=== PATIENT | male | born 1965 | race Caucasian/White ===

== ENCOUNTER 2024-04-07 07:52 | Outpatient (OUT) | payer OTHER, SELFPAY ==
--- NOTE | 2024-04-07 08:10 | CA_ITS ---
Patient Name: ALEXIS NGUYEN MR#: [id number] : 1965 Exam Date: 04/07/2024 Ordering Doctor: DR Neil Schaffer M.D. ECHOCARDIOGRAM REPORT PROCEDURE: CA ECHO DOPPLER COMPLETE INDICATIONS: Abnormal ECG, former smoker COMPARISON: None. DESCRIPTION: COMPLETE ECHOCARDIOGRAM Real-time transthoracic echocardiography with 2D, M-mode, spectral and color flow Doppler performed. QUALITY: Technical quality was good. LEFT VENTRICLE: Normal chamber size. Moderate left ventricular hypertrophy. No evidence of significant gradient across the left ventricular outflow tract. LV EF: Global left ventricular systolic function is hyperdynamic; visually estimated ejection fraction is 70 to 75%. No significant wall motion abnormalities. DIASTOLIC: Grade II diastolic dysfunction. ATRIAL SEPTUM: Visually appears intact. LEFT ATRIUM: Normal chamber size. RIGHT ATRIUM: Moderate dilatation. RIGHT VENTRICLE: Moderate dilatation. Normal right ventricular systolic function. TRICUSPID VALVE: Normal mobility and thickness. No stenosis with trivial regurgitation. Doppler studies reveal moderately (45-60) elevated right sided pressures. RVSP 58 mmHg MITRAL VALVE: Normal mobility and thickness. No evidence of mitral valve stenosis. There is no mitral annular calcification. Trivial mitral regurgitation. AORTIC VALVE: Normal trileaflet appearance. No visible sclerosis. Normal leaflet mobility. No evidence of aortic valve stenosis. No aortic regurgitation. AORTIC ROOT: Normal diameter and appearance. PULMONIC VALVE: Normal thickness and mobility. No stenosis. No regurgitation. PERICARDIUM: No evidence of pericardial effusion. IVC: IVC does not collapse. CONCLUSION: 1. Global left ventricular systolic function is hyperdynamic; visually estimated ejection fraction is 70 to 75% 2. The right ventricle is moderately dilated with normal systolic function 3. Grade 2 diastolic dysfunction 4. Moderate left ventricular hypertrophy 5. The right atrium is moderately dilated 6. Moderately elevated right ventricular systolic pressure; RVSP 58 mmHg 7. No significant valvular abnormalities Adult Echocardiography Procedure Report Left Ventricle LVEDD (3.7 - 5.6 cm): 4.53 cm LVESD (2.2 - 4.0 cm): 2.36 cm LVIVS thickness (0.6 - 1.2 cm): 2.15 cm LVPW thickness (0.5 - 1.0 cm): 1.34 cm e': 0.05 m/s E - e': 12.27 LVOT Max Gradient: 7.41 mm[Hg] LVOT Area (cm2): 1.36 m/s Peak Velocity (LVOT): 1.36 m/s Mean Velocity (LVOT): 0.90 m/s LVOT Diameter 2.51 cm Left Atrium LA Volume Index (2D A2C): 28.44 ml/m2 Left Atrium Systolic Dimension: 3.75 cm Mitral Valve MV E to A Ratio: 0.82 Mitral Valve A-Wave Peak Velocity: 0.80 m/s Mitral Valve E-Wave Peak Velocity: 0.66 m/s Right Ventricle Aorta AO Root Diam: 3.61 cm Aortic Valve AoV Area (Peak Mikey): 4.97 cm2, 4.97 cm2 AoV Area (VTI): 5.06 cm2, 5.06 cm2 Peak Velocity(Antegrade Flow): 1.36 m/s Peak Gradient(Antegrade Flow): 7.36 mm[Hg] Mean Velocity(Antegrade Flow): 0.92 m/s Mean Gradient(Antegrade Flow): 3.93 mm[Hg] Velocity Time Integral: 29.56 cm Tricuspid Valve Peak Velocity (Regurgitant Flow): 3.52 m/s Pulmonic Valve Mean Gradient: 1.67 mm[Hg] Mean Velocity: 0.60 m/s Peak Velocity: 0.90 m/s, 0.84 m/s Peak Gradient: 2.80 mm[Hg], 3.25 mm[Hg] Right Atrium Right Atrium Systolic Pressure: 68.73 ml, 68.73 ml Dictated by: Neil Schaffer M.D. on 04/08/2024 at 08:23 Approved by: Neil Schaffer M.D. on 04/08/2024 at 08:34
== END 2024-04-07 07:53 | disposition home or self-care (01) ==
LOC: CARD 07:55
PROVIDERS: PCP Internal Medicine; Visit Provider Internal Medicine Interventional Cardiology
DX: R94.31 Abnormal electrocardiogram [ECG] [EKG] (principal)
CPT/HCPCS: 93306

== ENCOUNTER 2024-06-03 10:32 | Outpatient (OUT) | payer OTHER, SELFPAY ==
--- OUTSIDE RECORDS SUMMARY | 2024-06-03 10:45 | XMS_ITS | CCD ---
Author Organization [facility] Care Team Providers Care 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 Name Role Phone CHRISTIAN SUTTON Consulting Unavailable BRY PAYAN Attending Unavailable BRY PAYAN Admitting Unavailable DEVRIES, DANIELE Primary Care Unavailable Brown Daniele FRAUSTO A Primary Care Provider [phone] BROWN, DANIELE A Primary Care Unavailable CORWIN SOSA Attending Unavailabl e SHEILA, CORWIN Guevara Attending Unavailabl e CORWIN SOSA Referring Unavailabl e BROWN, DANIELE A Primary Care Unavailable BROWN, DANIELE A Referring Unavailable BROWN, DANIELE A Primary Care Unavailable JAMINJUSTIN WHITLEY Admitting Unavailable JAMINJUSTIN WHITLEY Attending Unavailable JUSTIN NEVILLE Referring Unavailable BROWN, DANIELE A Primary Care Unavailable OLAMIDE TOMLINSON Attending Unavailable BROWN, DANIELE A Primary Care Unavailable BROWN, DANIELE A Referring Unavailable BROWN, DANIELE A Primary Care Unavailable PAULINA OLSON Referring Unavailable BROWN, DANIELE A Primary Care Unavailable DEVRIES, DANIELE B Referring Unavailable BROWN, DANIELE A Primary Care Unavailable DEVRIES, DANIELE B Referring Unavailable BROWN, DANIELE A Primary Care Unavailable DEVRIES, DANIELE B Referring Unavailable BROWN, DANIELE A Primary Care Unavailable DEVRIES, DANIELE B Referring Unavailable BROWN, DANIELE A Primary Care Unavailable JAMIN, JUSTIN Watkins Admitting Unavailable JAMINJUSTIN Attending Unavailable JUSTIN NEVILLE Referring Unavailable BROWN, DANIELE A Primary Care Unavailable LIZANDRO DURHAM Attending Unavailable BROWN, DANIELE A Primary Care Unavailable DEVRIES, DANIELE Primary Care Unavailable Jamin, Justin Penaloza Admitting Unavail able Jamin, Justin Penaloza Attending Unavail able Paulina Li Unavailable DEVRIES, DANIELE Primary Care Unavailable Jamin, Justin Penaloza Admitting Unavail able Jamin, Justin Penaloza Attending Unavail able DEVRIES, DANIELE Primary Care Unavailable Jamin, Justin Penaloza Admitting Unavail able Jamin, Justin Penaloza Attending Unavail able Daniele Devries MD Primary Care Provider [phone] DANIELE DEVRIES Primary Care Physician JUSTIN NEVILLE Attending Unavailable GERALDINE CASTANEDA Attending Unavailable HEMGERALDINE HUTCHINSON Referring Unavailable APLING, CHAPITO Schaefer Attending Unavailable TODD VALDEZ Attending Unavailable HEMEVANGELINA, GERALDINE Bernard Attending Unavailable APLING, CHAPITO Schaefer Attending Unavailable JAMIN, JUSTIN Watkins Attending Unavailable JAMIN, JUSTIN Watkins Referring Unavailable JAMIN, JUSTIN Watkins Attending Unavailable RUS, DAMARIS Healy Attending Unavailable APLING, CHAPITO Schaefer Attending Unavailable JAMIN, JUSTIN Watkins Attending Unavailable DAYDAY, DANIELE Schaefer Attending Unavailable DANIELE DEVRIES Referring Unavailable JAMIN, JUSTIN Watkins Attending Unavailable DAYDAY, DANIELE Schaefer Attending Unavailable JAMIN, JUSTIN Watkins Attending Unavailable RUSHER, DAMARIS Healy Attending Unavailable JAMIN, JUSTIN Watkins Referring Unavailable JAMIN, JUSTIN Watkins Attending Unavailable RUS, DAMARIS Healy Attending Unavailable DANIELE DEVRIES Referring Unavailable JAMIN, JUSTIN Watkins Attending Unavailable DANIELE DEVRIES Attending Unavailable JAMIN, JUSTIN Watkins Attending Unavailable IVORY WILKERSON Attending Unavailable BROWN, DUANE A Referring Unavailable BROWN, DUANE Roland Attending Unavailable BROWN, DUANE A Referring Unavailable BROWN, DUANE Roland Attending Unavailable NADIA DUANE A Referring Unavailable GERALDINE CASTANEDA Attending Unavailable Brown, Duane A Referring Unavailable Brown, Duane A Attending Unavailable Brown, Duane A Admitting Unavailable Brown, Duane A Admitting Unavailable Brown, Duane A Attending Unavailable Brown, Duane A Referring Unavailable ELTAHAWY, EHAB Attending Unavailable ELTAHAWY, EHAB Attending Unavailable [place]HAWY, EHAB Admitting Unavailable [place]HAWY, EHAB Attending Unavailable EL[place]HAWY, EHAB Referring Unavailable Allergies Allergy Classification Reported Allergen(s) Allergy Type Date of Onset Reaction(s) Facility (3 sources) Penicillins; Translations: [PENICILLINS] Drug allergy (disorder) 4 [facility] Repository (1 source) Penicillins Propensity to adverse reactions to drug 7 [facility] (2 sources) Penicillin; Translations: [penicillin] Drug Allergy [facility] Repository (6 sources) Penicillins Drug Allergy 3 Rash [facility] Work Phone: Medications Current Medications Medication Drug Class(es) Dates Sig (Normalized) Sig (Original) aspirin 81 mg chewable tablet (6 sources) Platelet Aggregation Inhibitor, Nonsteroidal Anti-inflammatory Drug Start: 04-08-2024 End: 07-16-2024 aspirin 81 MG chewable tablet Chew 81 mg in the morning. 04/08/2024 07/16/2024 Active atorvastatin 40 mg oral tablet (4 sources) HMG-CoA Reductase Inhibitor Start: 04-08-2024 End: 07-16-2024 take 1 tablet by mouth at bedtime atorvastatin (Lipitor) 40 MG tablet Take 40 mg by mouth at bedtime 04/08/2024 07/16/2024 Active cetirizine hydrochloride 10 mg oral tablet (6 sources) Histamine-1 Receptor Antagonist take 1 tablet by mouth once daily cetirizine (ZyrTEC) 10 MG tablet Take 10 mg by mouth Daily Active ferrous sulfate 325 mg delayed release oral tablet (3 sources) Start: 02-21-2024 take 1 tablet by mouth at mealtime ferrous sulfate 325 (65 Fe) MG EC tablet Take 65 mg of iron by mouth in the morning. Take with meals. 02/21/2024 Active gabapentin 300 mg oral capsule (8 sources) Anti-epileptic Agent Start: 12-25-2023 take 1 capsule by mouth in the morning, then take 1 capsule by mouth in the evening, then take 1 capsule by mouth at bedtime gabapentin (Neurontin) 300 MG capsule Indications: Difficulty walking Take 1 capsule (300 mg) by mouth in the morning and 1 capsule (300 mg) in the evening and 1 capsule (300 mg) before bedtime. 300 capsule 1 12/25/2023 Active gabapentin (NEUR ONTIN) 300 mg capsule 1 capsule (300 mg total) 2 (two) times a day as needed. 0 Active hydroCHLOROthiazide 12.5 mg / irbesartan 150 mg oral tablet (7 sources) Thiazide Diuretic, Angiotensin 2 Receptor Stanley Start: 01-23-2024 End: 01-22-2025 take 1 tablet by mouth once daily irbesartan-hydroCHLOROthiazide (Avalide) 150-12.5 MG tablet Indications: Primary hypertension (CMS/HCC) Take 1 tablet by mouth Daily 90 tablet 3 01/23/2024 01/22/2025 Active ibuprofen 800 mg oral tablet (8 sources) Nonsteroidal Anti-inflammat ory Drug Start: 12-24-2023 take 1 tablet by mouth in the morning, then take 1 tablet by mouth in the evening, then take 1 tablet by mouth at bedtime ibuprofen 800 MG tablet Indications: Primary osteoarthritis of foot, unspecified laterality Take 1 tablet (800 mg) by mouth in the morning and 1 tablet (800 mg) in the evening and 1 tablet (800 mg) before bedtime. 90 tablet 2 12/24/2023 Active Start: 07-09-2023 take 1 tablet by ellyn every eight hours as needed ibuprofen (MOTRIN) 800 mg tablet Take 1 tablet (800 mg total) by mouth every 8 (eight) hours as needed. 0 07/09/2023 Active omeprazole 40 mg delayed release oral capsule (8 sources) Proton Pump Inhibitor Start: 03-17-2024 take 1 capsule by mouth once omeprazole (PriLOSEC) [address] capsule Indications: Gastroesophageal reflux disease without esophagitis Take 1 capsule (40 mg) by mouth every 12 (twelve) hours 180 capsule 3 03/17/2024 Active Start: 11-02-2016 take 1 capsule by mo [facility] in the morning, then take 1 capsule by mouth at bedtime omeprazole (PriLOSEC) 40 mg capsule Take 1 capsule (40 mg total) by mouth in the morning and 1 capsule (40 mg total) before bedtime. 3 11/02/2016 Active simvastatin 40 mg oral tablet (7 sources) HMG-CoA Reductase Inhibitor Start: 11-28-2016 take 1 tablet by mouth at bedtime simvastatin (Zocor) 40 MG tablet Indications: Other hyperlipidemia (CMS/HCC) Take 1 tablet (40 mg) by mouth at bedtime 90 tablet 3 07/10/2023 Active Completed/Discontinued Medications Medication Drug Class(es) Dates Sig (Normalized) Sig (Original) acetaminophen 325 mg oral tablet (1 source) End: 07-23-2023 take 2 tablets by mouth every six hours as needed for pain acetaminophen (TYLENOL) 325 mg tablet Take 650 mg by mouth every 6 (six) hours as needed for pain. 0 07/23/2023 Discontinued MULTIVIT-MINERALS/FE RROUS FUM (MULTI VITAMIN ORAL) (1 source) End: 07-23-2023 MULTIVIT-MINERALS/F ERROUS FUM (MULTI VITAMIN ORAL) Take by mouth daily. 0 07/23/2023 Discontinued potassium chloride 20 meq oral tablet (7 sources) Start: 05-21-2024 take 1 tablet by mouth once daily Potassium Chloride (Eqv-K-Tab) 20 mEq oral tablet, extended release 20 mEq = 1 tab(s), Oral, Daily, Prophylaxis Start Date: 05/21/24 Status: Ordered Start: 02-27-2024 take 1 tablet by ellyn th once daily potassium chloride CR (K-Tab) 20 MEQ ER tablet Indications: Hypokalemia Take 1 tablet (20 mEq) by mouth Daily Do not crush, chew, or split. 30 tablet 2 02/27/2024 Active Problems Active Problems Problem Classification Problem Date Documented Date Episodic/Chronic Coronary atherosclerosis and other heart disease (2 sources) Atherosclerotic heart disease of [place] coronary artery without angina pectoris; Translations: [Atherosclerotic heart disease of [place] coronary artery without angina pectoris] Onset: 4 Chronic Disorders of lipid metabolism (12 sources) Hyperlipidemia; Translations: [Hyperlipidemia, unspecified] Onset: 7 12-26-2016 Chronic Diverticulosis and diverticulitis (6 sources) Diverticula of intestine; Translations: [Diverticulosis of intestine, part unspecified, without perforation or abscess without bleeding] Onset: 3 12-06-2022 Chronic Esophageal disorders (9 sources) Gastro-esophageal reflux disease without esophagitis; Translations: [Gastroesophageal reflux disease] Onset: 7 12-26-2016 Chronic Essential hypertension (3 sources) Hypertensive disorder; Translations: [Essential (primary) hypertension] Onset: 4 05-21-2024 Chronic External cause codes: Fall (1 source) Fall (on) (from) unspecified stairs and steps, initial encounter; Translations: [FALL ON FROM UNS STAIRS STEPS INIT] Onset: 0 Gastritis and duodenitis (7 sources) Chronic superficial gastritis; Translations: [Chronic superficial gastritis without bleeding] Onset: 7 01-11-2017 Chronic Immunizations and screening for infectious disease (1 source) Encounter for immunization; Translations: [ENCOUNTER FOR IMMUNIZATION] Onset: 0 Episodic Joint disorders and dislocations; trauma-related (1 source) Unspecified internal derangement of right knee; Translations: [Unspecified internal derangement of right knee] Onset: 4 Chronic Open wounds of extremities (4 sources) Laceration without foreign body of right forearm, initial encounter; Translations: [LACERATION W/O FB RT FORARM INITIAL] Onset: 0 Episodic Osteoarthritis (19 sources) Osteoarthritis; Translations: [Unspecified osteoarthritis, unspecified site] Onset: 7 12-26-2016 Chronic Other aftercare (1 source) Other half-way (current) drug therapy; Translations: [OTH SUBSTANCE ABUSE THERAPIST CURRENT DRUG THERAPY] Onset: 0 Episodic Other connective tissue disease (10 sources) Rotator cuff arthropathy of right shoulder; Translations: [Unspecified rotator cuff tear or rupture of right shoulder, not specified as traumatic] Onset: 4 03-02-2024 Episodic Other diseases of veins and lymphatics (6 sources) Bilateral lower limb edema; Translations: [Chronic venous hypertension (idiopathic) without complications of bilateral lower extremity] Onset: 3 12-06-2022 Chronic Other injuries and conditions due to external causes (1 source) Other specified injuries of head, initial encounter; Translations: [OTH SPEC INJURIES HEAD INITIAL ENC] Onset: 0 Other liver diseases (6 sources) Steatosis of liver; Translations: [Fatty (change of) liver, not elsewhere classified] Onset: 3 12-06-2022 Chronic Other male genital disorders (6 sources) Male erectile dysfunction, unspecified; Translations: [Impotence of organic origin] Onset: 3 05-28-2023 Chronic Other nervous system disorders (6 sources) Difficulty walking; Translations: [Difficulty in walking, not elsewhere classified] Onset: 3 12-06-2022 Chronic Other non-traumatic joint disorders (2 sources) Pain in right shoulder; Translations: [Pain in joint, shoulder region] 2024 Episodic Other screening for suspected conditions (not mental disorders or infectious disease) (11 sources) Abnormal electrocardiogram [ECG] [EKG]; Translations: [Electrocardiogram abnormal] Onset: 4 03-02-2024 Episodic Screening and history of mental health and substance abuse codes (1 source) Personal history of nicotine dependence; Translations: [PERSONAL HISTORY OF NICOTINE DEPEND] Onset: 0 Episodic Superficial injury; contusion (1 source) Contusion of right shoulder, initial encounter; Translations: [CONTUSION RIGHT SHOULDER INITIAL] Onset: 0 Episodic Past or Other Problems Problem Classification Problem Date Documented Da te Episodic/Chronic Acquired foot deformities (6 sources) Acquired equinus deformity of foot; Translations: [Other acquired deformities of unspecified foot] Onset: 12-06-2022 12-06-2022 Episodic Gastritis and duodenitis (6 sources) Gastroduodenitis; Translations: [Gastroduodenitis, unspecified, without bleeding] Onset: 12-06-2022 12-06-2022 Episodic Other non-traumatic joint disorders (2 sources) Knee pain Onset: 10-21-2023 Episodic Other non-traumatic joint disorders (6 sources) Chronic pain of right upper limb; Translations: [Pain in right shoulder] Onset: 05-28-2023 05-28-2023 Episodic Other non-traumatic joint disorders (6 sources) Pain in right knee; Translations: [Pain in joint, lower leg] Onset: 05-28-2023 05-28-2023 Episodic Varicose veins of lower extremity (6 sources) Varicose veins of bilateral lower limbs; Translations: [Asymptomatic varicose veins of bilateral lower extremities] Onset: 12-06-2022 12-06-2022 Episodic Results Test Name Value Interpretation Reference Range Facility Follow-Upon 05-27-2024 Follow-Up [id number] Harvinder Che 1965 M Date Provider Department Center 05/27/2024 271-[facility] Family History Problem Relation Age of Onset Stroke Father Hypertension Father Family Status - Relation Status Age at Father Level of Service:66251 OR OFFICE/OUTPATIENT ESTABLISHED MOD MDM [address] [facility] CT Upper Extremity w/o Contr ast [place] 05-23-2024 CT Upper Extremity w/o Contrast Right Exam Date/Time: 05/21/2024 11:24 EST Reason for Exam: RIGHT SHOULDER OA Report IMPRESSION: RIGHT SHOULDER OSTEOARTHRITIS. EXAMINATION: CT Upper Extremity w/o Contrast Right HISTORY: Right shoulder osteoarthritis. TECHNIQUE: Multiple contiguous axial images were obtained of the right upper extremity utilizing Tornier protocol. Multiplanar reformats were obtained. COMPARISON: None available FINDINGS: Degenerative changes including joint space narrowing and marginal osteophyte formation of the glenohumeral joint. No acute fracture. Degenerative changes are also identified of the acromioclavicular joint. High riding humeral head compatible with large full-thickness superior rotator cuff tear. All CT scans at this facility use dose modulation, iterative reconstruction, and/or weight based dosing when appropriate to reduce radiation dose to as low as reasonably achievable. Ordering Provider: Duane Goldberg FINAL REPORT Dictated: 05/23/2024 2:38 pm Az Grady DO Signed (Electronic Signature): 05/23/2024 2:38 pm Signed by: Az Grady DO Transcribed by: ANNETTE Technologist: HELENA Nash [facility] XR Chest 2 Viewson XR Chest 2 Views Exam Date/Time: 05/21/2024 11:19 EST Reason for Exam: P.A.T. Report IMPRESSION: NO RADIOGRAPHIC EVIDENCE OF ACUTE INTRATHORACIC PROCESS. EXAMINATION: XR Chest 2 Views HISTORY: Preoperative evaluation TECHNIQUE: Frontal and lateral views of the chest. COMPARISON: None available FINDINGS: Cardiomediastinal silhouette is within normal limits. No pneumothorax, pleural effusion, or consolidation. Hyperinflation of the lungs and increased bronchovascular markings suggesting COPD. No acute osseous abnormality. Ordering Provider: Justin Hay FINAL REPORT Dictated: 05/23/2024 2:34 pm Az Grady DO Signed (Electronic Signature): 05/23/2024 2:34 pm Signed by: Az Grady DO Transcribed by: ANNETTE Technologist: BIANKA Technical Comments Radiation Dose: Ka,r in mGy = na DAP = na Normal [facility] ABO/Rh Retypeon 05-21-2024 ABO/Rh Retype Interp Positive Invalid Interpretation Code [facility] Comment on above: Performed By: #### 1 [id number] #### [facility] [address] [place] [address] BLOOD BANKOrdered By: Derick Hoover on 05-21-2024 ABO/Rh Retype Interp Positive Invalid Interpretation Code [facility] [place] Subsection BMPon 05-21-2024 Anion gap [Moles/Vol] 12 mmol/L Normal 6-16 [facility] Comment on above: Performed By: #### 2 [id number] #### [facility] [address] [place] [address] Calcium [Mass/Vol] 9.5 mg/dL Normal 8.9-11.1 [facility] Comment on above: Performed By: #### 2 [id number] #### [facility] [address] [place] [address] Chloride [Moles/Vol] 100 mmol/L Low 101-111 [facility] Comment on above: Performed By: #### 2 [id number] #### [facility] [address] [place] [address] CO2 [Moles/Vol] 28 mmol/L Normal 21-31 [facility] Comment on above: Performed By: #### 2 [id number] #### [facility] [address] [place] [address] Creatinine [Mass/Vol] 0.8 mg/dL Normal 0.5-1.3 [facility] Comment on above: Performed By: #### 2 [id number] #### [facility] [address] [place] [address] Glucose [Mass/Vol] 111 mg/dL Normal 55-199 [facility] Comment on above: Performed By: #### 2 [id number] #### [facility] [address] [place] [address] Potassium [Moles/Vol] 3.5 mmol/L Normal 3.5-5.3 [facility] Comment on above: Performed By: #### 2 [id number] #### [facility] [address] [place] [address] Sodium [Moles/Vol] 136 mmol/L Normal 135-145 [facility] Comment on above: Performed By: #### 2 [id number] #### [facility] [address] [place] [address] Urea nitrogen [Mass/Vol] 19 mg/dL Normal 5-21 [facility] Comment on above: Performed By: #### 2 [id number] #### [facility] [address] [place] [address] Urea nitrogen/Creatinine [Mass ratio] 24 No Units High 10-20 [facility] Comment on above: Performed By: #### 2 [id number] #### [facility] [address] [place] [address] CBC w/ Auto Diffon 4 Basophils/100 WBC (Bld) 0.5 % Normal 0.0-2.0 [facility] Comment on above: Performed By: #### 2 [id number] #### [facility] [address] [place] [address] Basophils/Leukocytes Auto (Bld) [Pure # fraction] 0.0 E9/L Normal 0.0-0.2 [facility] Comment on above: Performed By: #### 2 [id number] #### [facility] [address] [place] [address] Eosinophils (Bld) [#/Vol] 0.1 E9/L Normal 0.0-0.5 [facility] Comment on above: Performed By: #### 2 [id number] #### [facility] [address] [place] [address] Eosinophils/100 WBC (Bld) 1.4 % Normal 0.0-8.0 [facility] Comment on above: Performed By: #### 2 [id number] #### [facility] [address] [place] [address] Erythrocyte distribution width (RBC) [Ratio] 13.0 % Normal 10.9-14.2 [facility] Comment on above: Performed By: #### 2 [id number] #### [facility] [address] [place] [address] Hematocrit (Bld) [Volume fraction] 39.7 % Normal 37.7-49.0 [facility] Comment on above: Performed By: #### 2 [id number] #### [facility] [address] [place] [address] Hemoglobin (Bld) [Mass/Vol] 14.2 g/dL Normal 13.5-17.5 [facility] Comment on above: Performed By: #### 2 [id number] #### [facility] [address] [place] [address] Lymphocytes (Bld) [#/Vol] 1.7 E9/L Normal 1.0-4.0 [facility] Comment on above: Performed By: #### 2 [id number] #### [facility] [address] [place] [address] Lymphocytes/100 WBC (Bld) 16.3 % Normal 14.0-50.0 [facility] Comment on above: Performed By: #### 2 [id number] #### [facility] [address] [place] [address] MCH (RBC) [Entitic mass] 33.6 pg Normal 27.0-34.0 [facility] Comment on above: Performed By: #### 2 [id number] #### [facility] [address] [place] [address] MCHC (RBC) [Mass/Vol] 35.9 g/dL Normal 31.4-36.0 [facility] Comment on above: Performed By: #### 2 [id number] #### [facility] [address] [place] [address] MCV (RBC) [Entitic vol] 93.5 fL Normal 80.0-100.0 [facility] Comment on above: Performed By: #### 2 [id number] #### [facility] [address] [place] [address] Monocytes (Bld) [#/Vol] 0.7 E9/L Normal 0.2-1.0 [facility] Comment on above: Performed By: #### 2 [id number] #### [facility] [address] [place] [address] Neutrophils (Bld) [#/Vol] 7.8 E9/L High 2.0-7.5 [facility] Comment on above: Performed By: #### 2 [id number] #### [facility] [address] [place] [address] Neutrophils/100 WBC (Bld) 75.0 % Normal 36.0-75.0 [facility] Comment on above: Performed By: #### 2 [id number] #### [facility] [address] [place] [address] Platelet 291.0 E9/L Normal 150.0-500.0 [facility] Comment on above: Performed By: #### 2 [id number] #### [facility] [address] [place] [address] Platelet mean volume (Bld) [Entitic vol] 8.7 fL Normal 6.4-10.8 [facility] Comment on above: Performed By: #### 2 [id number] #### [facility] [address] [place] [address] RBC (Bld) [#/Vol] 4.3 E12/L Normal 4.3-5.9 [facility] Comment on above: Performed By: #### 2 [id number] #### [facility] [address] [place] [address] WBC corrected for nucl RBC Auto (Bld) [#/Vol] 10.3 E9/L Normal 4.0-11.0 [facility] Comment on above: Performed By: #### 2 [id number] #### [facility] [address] [place] [address] CHEMISTRYOrdered By: SYSTEM SYSTEM on 05-21-2024 Anion gap [Moles/Vol] 12 mmol/L Normal 6 - 16 mEq/L [facility] Calcium [Mass/Vol] 9.5 mg/dL Normal 8.9 - 11. 1 mg/dL [facility] Chloride [Moles/Vol] 100 mmol/L Low 101 - 1 11 mmol/L [facility] CO2 [Moles/Vol] 28 mmol/L Normal 21 - 31 mmol/L [facility] Creatinine [Mass/Vol] 0.8 mg/dL Normal 0.5 - 1.3 mg/dL [facility] eGFR 101 mL/min/1.73 m2 Normal >=59mL/mi n/1 .73 m2 [facility] Glucose [Mass/Vol] 111 mg/dL Normal 55 - 199 mg/dL [facility] Potassium [Moles/Vol] 3.5 mmol/L Normal 3.5 - 5.3 mmol/L [facility] Sodium [Moles/Vol] 136 mmol/L Normal 135 - 145 mmol/L [facility] Urea nitrogen [Mass/Vol] 19 mg/dL Normal 5 - 21 mg/dL [facility] Urea nitrogen/Creatinine [Mass ratio] 24 mg/mg High 10 - 20 [facility] HEMATOLOGYOrdered By: SYSTEM SYSTEM on 05-21-2024 Basophils/100 WBC (Bld) 0.5 % Normal 0.0 - 2.0 % [facility] Heme Basophils/Leukocytes Auto (Bld) [Pure # fraction] 0.0 E9/L Normal 0.0 - 0.2 E9/L [facility]e Eosinophils (Bld) [#/Vol] 0.1 E9/L Normal 0.0 - 0.5 E9/L [facility]e Eosinophils/100 WBC (Bld) 1.4 % Normal 0.0 - 8.0 % [facility]e Erythrocyte distribution width (RBC) [Ratio] 13.0 % Normal 10.9 - 14.2 % [facility]e Hematocrit (Bld) [Volume fraction] 39.7 % Normal 37.7 - 49.0 % [facility]e Hemoglobin (Bld) [Mass/Vol] 14.2 g/dL Normal 13.5 - 17.5 gm/dL [facility]e Lymphocytes (Bld) [#/Vol] 1.7 E9/L Normal 1.0 - 4.0 E9/L [facility] Lymphocytes/100 WBC (Bld) 16.3 % Normal 14.0 - 50.0 % [facility] MCH (RBC) [Entitic mass] 33.6 pg Normal 27.0 - 34.0 pg [facility] MCHC (RBC) [Mass/Vol] 35.9 g/dL Normal 31.4 - 36.0 gm/dL [facility] MCV (RBC) [Entitic vol] 93.5 fL Normal 80.0 - 100.0 fL [facility] Monocytes (Bld) [#/Vol] 0.7 E9/L Normal 0.2 - 1.0 E9/L [facility] Monocytes/100 WBC (Bld) 6.8 % Normal 4.0 - 14.0 % [facility] Neutrophils (Bld) [#/Vol] 7.8 E9/L High 2.0 - 7.5 E9/L [facility] Neutrophils/100 WBC (Bld) 75.0 % Normal 36.0 - 75.0 % [facility] Platelet 291.0 E9/L Normal 150.0 - 500.0 E9/L [facility] Platelet mean volume (Bld) [Entitic vol] 8.7 fL Normal 6.4 - 10.8 fL [facility] RBC (Bld) [#/Vol] 4.3 E12/L Normal 4.3 - 5.9 E12/L [facility] WBC corrected for nucl RBC Auto (Bld) [#/Vol] 10.3 E9/L Normal 4.0 - 11.0 E9/L [facility] UA WITH CULT RFLXon 05-21-20 24 BILIRUBIN:PRTHR:PT:U RINE:ORD:TEST STRIP.AUTOMATED Negative Negative mg/dL [facility] EPITHELIAL CELLS.SQUAMOUS:NARIC :PT:URINE SED:QN:AUTOMATED COUNT 0-2 CD:[id number] [facility] ERYTHROCYTES:PRTHR:P T:URINE SED:ORD:MICROSCOPY.L IGHT 0-3 [facility] CLARITY:TYPE:PT:URIN E:NOM: Clear Clear [facility] CLASS:TYPE:PT:URINE COLLECTION METHOD:NOM:* Clean Catch [facility] COLOR:TYPE:PT:URINE: NOM:AUTO Yellow Yellow [facility] Comment on above: Microscopic readings are only performed on those samples that meet specific criteria set forth by [facility]. [facility] PH:LSCNC:PT:URINE:QN :TEST STRIP 5.5 5.0 - 9.0 [facility] SPECIFIC GRAVITY:RDEN:PT:URIN E:QN:TEST STRIP 1.022 1.005 - 1.030 [facility] GLUCOSE:PRTHR:PT:URI NE:ORD:TEST STRIP Negative Negative mg/dL [facility] HEMOGLOBIN:MCNC:PT:U RINE:SEMIQN:TEST STRIP.AUTOMATED 2+ Abnormal Negative mg/dL [facility] Interpretation and review of laboratory results Abnormal [facility] KETONES:PRTHR:PT:URI NE:ORD:TEST STRIP.AUTOMATED Negative Negative mg/[facility] LEUKOCYTE ESTERASE:PRTHR:PT:UR INE:ORD:TEST STRIP.AUTOMATED Negative Negative CD:[id number] [facility] LEUKOC[facility]TES:NARIC:PT: URINE SED:QN:AUTOMATED COUNT 0-5 [facility] MUCUS:PRTHR:PT:URINE :ORD:AUTOMATED Trace Negative CD:[id number] [facility] NITRITE:PRTHR:PT:URI NE:ORD:TEST STRIP.AUTOMATED Negative Negative mg/dL [facility] PROTEIN:PRTHR:PT:URI NE:ORD:TEST STRIP Trace Abnormal Negative mg/dL [facility] UROBILINOGEN:MCNC:PT :URINE:SEMIQN:TEST STRIP 2 mg/dL Abnormal Negative mg/dL [facility] Original Ordering Provider: DO Duane Goldberg [facility] Health[facility] e UA with Cult Rflxon 05-21-20 24 Bilirubin Ql (U) Negative Normal Negative [facility] Comment on above: Performed By: #### 4 [id number] #### [facility] [address] [place] [address] Clarity (U) Clear Normal Clear [facility] Comment on above: Performed By: #### 4 [id number] #### [facility] [address] [place] [address] Color (U) Yellow Normal Yellow [facility] Comment on above: Result Comment: Micr oscopic readings are only performed on those samples that meet specific criteria set forth by [facility]. Performed By: #### 4 [id number] #### [facility] [address] [place] [address] Epithelial cells.squamous Auto (Urine sed) [#/Area] 0-2 Invalid Interpretation Code [facility] Comment on above: Performed By: #### 4 [id number] #### [facility] [address] [place] [address] Glucose Ql (U) Negative Normal Negative [facility] Comment on above: Performed By: #### 4 [id number] #### [facility] [address] [place] [address] Hemoglobin Auto test strip (U) [Mass/Vol] 2+ mg/dL Abnormal Negative [facility] Comment on above: Performed By: #### 4 [id number] #### [facility] [address] [place] [address] Ketones Auto test strip Ql (U) Negative Normal Negative [facility] Comment on above: Performed By: #### 4 [id number] #### [facility] [address] [place] [address] Leukocyte esterase Auto test strip Ql (U) Negative Normal Negative [facility] Comment on above: Performed By: #### 4 [id number] #### [facility] [address] [place] [address] Mucus Auto Ql (U) Trace Normal Negative [facility] Comment on above: Performed By: #### 4 [id number] #### [facility] [address] [place] [address] Nitrite Auto test strip Ql (U) Negative Normal Negative [facility] Comment on above: Performed By: #### 4 [id number] #### [facility] [address] [place] [address] pH (U) 5.5 [pH] Invalid Interpretation Code 5.0-9.0 [facility] Comment on above: Performed By: #### 4 [id number] #### [facility] [address] [place] [address] Protein Ql (U) Trace Abnormal Negative [facility] Comment on above: Performed By: #### 4 [id number] #### [facility] [address] [place] [address] RBC Ql (U) 0-3 Normal 0-3 [facility] Comment on above: Performed By: #### 4 [id number] #### [facility] [address] [place] [address] Specific gravity (U) [Rel density] 1.022 Invalid Interpretation Code 1.005-1.030 [facility] Comment on above: Performed By: #### 4 [id number] #### [facility] [address] [place] [address] Urobilinogen (U) [Mass/Vol] 2 mg/dL Abnormal Negative [facility] Comment on above: Performed By: #### 4 [id number] #### [facility] [address] [place] [address] WBC Auto (Urine sed) [#/Area] 0-5 Normal 0-5 [facility] Comment on above: Performed By: #### 4 [id number] #### [facility] [address] [place] [address] Type of Urine collection method Clean Catch Normal [facility] Comment on above: Performed By: #### 4 [id number] #### [facility] [address] [place] [address] URINALYSISOrdered By: SYSTEM SYSTEM on 05-21-2024 Bilirubin Ql (U) Negative Normal Negativemg/ d L [facility] UA Auto SS Clarity (U) Clear (05/21/24 11:11 AM) Normal Clear [facility] UA Auto SS Color (U) Yellow 1 (05/21/24 11:11 AM) Normal Yellow [facility] UA Auto SS Comment on above: Interpretive Data: M icroscopic readings are only performed on those samples that meet specific criteria set forth by [facility]. Epithelial cells.squamous Auto (Urine sed) [#/Area] 0-2 graded/HPF Invalid Interpretation Code [facility] UA Auto SS Glucose Ql (U) Negative Normal Negativemg/d L [facility] UA Auto SS Hemoglobin Auto test strip (U) [Mass/Vol] 2+ mg/dL Invalid Interpretation Code Negativemg/d L [facility] UA Auto SS Ketones Auto test strip Ql (U) Negative Normal Negativemg/d L [facility] UA Auto SS Leukocyte esterase Auto test strip Ql (U) Negative Normal NegativeLeu/ uL [facility] UA Auto SS Mucus Auto Ql (U) Trace graded/LPF Normal Negati vegrad ed/LPF [facility] UA Auto SS Nitrite Auto test strip Ql (U) Negative Normal Negativemg/d L [facility] UA Auto SS pH (U) 5.5 *NA* (05/21/24 11:11 AM) Invalid Interpretation Code 5.0 - 9.0 [facility] UA Auto SS Protein Ql (U) Trace mg/dL Invalid Interpretation Code Negativemg/d L [facility] UA Auto SS RBC Ql (U) 0-3 graded/HPF Normal 0-3graded/HP F [facility] UA Auto SS Specific gravity (U) [Rel density] 1.022 *NA* (05/21/24 11:11 AM) Invalid Interpretation Code 1.005 - 1.030 [facility] UA Auto SS Urobilinogen (U) [Mass/Vol] 2 mg/dL Invalid Interpretation Code Negativemg/d L [facility] UA Auto SS WBC Auto (Urine sed) [#/Area] 0-5 graded/HPF Normal 0-5graded/HP F [facility] UA Auto SS URINALYSISOrdered By: Marliy Lam on 05-21-2024 UA Spec Desc Clean Catch (05/21/24 11:11 AM) Normal [facility] UA Auto SS eGFRon 05-21-2024 eGFR 101 mL/min/1.73 m2 Normal >=59 [facility] Comment on above: Performed By: #### 1 [id number] #### [facility] [address] [place] [address] XR Shoulder - right 2 Viewso n 05-03-2024 Imaging Result: 4 views right shoulder, Grashey/Zanca/outlet /axillary, taken today and saved to the permanent medical record are reviewed. Superior migration of humeral head. GH joint space fairly well preserved. Acetabularization changes of acromion. [facility] XR Shoulder - right 2 Viewso n 2024 Radiology Study observation (narrative) [facility] 04-08-2024 ANE Attestation signed by Neil Schaffer MD at 04/08/2024 9:59 AM Neil Schaffer MD, MPH, FACC, [facility] Interventional Cardiology Pager Email: [email or web address] Patient: Harvinder Che Procedure Information Date/Time: 04/08/24899 Procedure: Coronary angiography (Left) - PC APPROVED 13-07-28 please have echo done with this Location: [facility] DOCUMENTATION SUPERVISOR 3 / [facility] (Cath) Providers: Neil Schaffer MD Clinical information reviewed: Allergies Meds Physical Exam Airway Mallampati: III TM distance: >3 FB Neck ROM: full Cardiovascular Rhythm: regular Rate: normal (+) murmur (-) peripheral edema Dental Pulmonary Breath sounds clear to auscultation Abdominal - normal exam Anesthesia Plan ASA 2 other (Conscious sedation. ) Additional Equipment Requests Normal [facility] Coding Summaryon 04-08-2024 Coding Summary HTMLBase 64 GjjoxbbiXIa4uTh+PGhl YWQ+KQ8YALViA39xfHVu eN5wO4HGBRvTStewOJAF AYsMQhKzyrNnBG4jyTKk ZXJu IC8+BK4fGAJvQzuqfNTa h1L0cMD0J96qzt4xLNav rTG5LWOrBtKropefn1vd wLl8CNjrLgwuRdSp UKGnxA81HID5iN43Rp65 kAPctAQmy5qmuKw2FwWk PAZmPDO7nTfoKTcbk6Ip CPQlJ69ypLDtf5K2 IGNvbGxhcHNlOyBlbXB0 dU3xHNqsowujd7vpqtkg Wwl6mc09jMPuv0U4yAQ9 Z9SakoM7BVXkrUDi ZqsbkPNCpP4dywjpp7lt mgjsDtBdEGQhBLs4JKe7 RXCesMgaBkNfRW69PBT3 BFDtriQbH4VuLRHn qNxwAsQ1z0U4Sz6QN2HK VhyoQ3AADJTCDZzmyJP+ SK10bn73K7CdGqajJbw7 MAYtNDL7pQJ9mY9j ORQlMGvlg7B5gKU9R3Em twIcxb2zr2soSQEwZAxw M73goMWsk4K3GHDjpJP2 FTDwbDrjLrPvsR88 Oyc+VGSilHxek9SpEcqu u5ley8bsiWf8AzwhDMNk uhDunHokTLD4e7XuAu4d RWKyiUB2zVG1dY8k GsNxGfN4PHvrR487XmAq mNZwXnstS93wZ2KxcNA+ CCInUcj7QIWxxIysYR0k O7TxWMKslzgkvATh vIotRD1wLFYhqoioRHLl vN2rDGWfU2u7CaYyUvY8 IEqlO7LdXZZpwryoZh08 eK8hMuVoDdB9OEdh Y1LnxrC2BDErhFYzTNfs FBF9J38qk8T0JCHsMLIf LHK5pVY0jH9qnJdqdbjm bGVmdDsgdmVydGlj PWfoYGqvU921WNWnfFva PkNvZGluZyBEYXRlOiAg MDkvMjUvMjAyNDwvdGQ+ YLRwQRA9tLwlRLMh xNPhASyyLh5zwRrswXco NI1dKKMxxahjOWDvwT8s SJZqeFQtmKchQC1vDMVi xcyuz631SyJjNJF4 LWMwnCCzP8FwmR3pSoPw EIEdVSFsK1HrgZYtPXvp Z941HGbeZgY5GDIvccRo M0AfCFKooVaoIpS5 m5U5Nq5Es3MurrfzL4Lk gHGaWwTdDbwvUZt2U4Qe PjwvdHI+EF05ZIIzGK71 AGe2DRY0qCyiLBtq HWXvM7LszZ9hMzAjTLSw ZGRkOyc+PHRhYmxlIHdp ZHRoPScxMDAlJyBzdHls YQ0wPq7oCEQqSQJx iUuyuJScEkJck1coCROj RMqgXZ1nvHmqX6HfvNC6 NVBor8a6Gp38B21sQ0Xt dXA+PHCgdLV8lEV2 qW8pTtHdTvC2PZduV259 JvVblBPgPuege4lxx7uf lRc5VaW0NJFpjnDceUiq FYQ8s5VcBg77O39a IHdpZHRoPSIxNSUiIHZh rMaqzy2hdI2kBi0+PGNv aEL7wWQ9jH7iFjMcUfM8 QFyaG448RpLhaFRo Ezleo9fti9hxpNu6UyIx OABcjqIpuTalYJX3b9Qj Ec45C3VvqRnaz4HiWts6 oe33gJMlv1M4dUS4 K9BpRXAglekmpGMdpRwo ZT3xHQNvyqmpUBJjtA1k QJJxP7k0EsLgXtX8QHak T5TndjL1FNLveNSw KECkqJLHaJ0ibmhzh7fk wwqlJgLpWXTfBLa7TEi8 YDUrcZycElAiPGI4JzY8 QEA9iEBxoO0igCcw demejP2kQrc+SKJ2iGXm tXIVLS8hYuggtJP+PHRk YOV1zZnwCDmfRABbcR2p RWZhV9o2OcFnLzL2 LDoqX8IaiyZ8WEPwgVXx ZFDeqXJFdT8zvyvro0uc dkxpQxUtSWGcIHm2FKo0 LWFsaWduOiBsZWZ0 PsJ9MAQ5jPSkjR3upNcs eukygL7tZbv+QmlydGgg VGZ3RPs9C7BqOim2HXSd gIedZC1jmDTyYXlt Rs6jgWdtcAanEA0dZKVm zimsa851PcIdz2egRZQb qBRvHLwbEVR4A58bw4M2 SGDqOKKxOEY6tQD8 qV6rzZxkzqvpzBMdqXck guLzlOdaTWbzRXhuR537 WSYvdKuwLgEbXUh1U8Tb Wtq5AUFmvWdxGL5y nKXlVLtvCc2xePplyBpc IW8xXLIylerzc099PdTo u3rvHVRzaQClRAdvUNI9 K57nm5M9XDQiDAUl XNC4rVT9gV2iiVrghiql bGVmdDsgdmVydGljYWwt QCnlQ672FPWzrNsgIhBv cRo1Z0WiQbs0LIYs uUvvBB5prPLbXPzcVy6r uBfbwIhbXP5yTUZyfhmd o007XrWhv6ixCKTvzSQw TVdsDBL4W55ml8C1 TCHlXRJdWNI8aOL2fI8y bGlnbjogbGVmdDsgdmVy iFszVIndCOrgZ673LAVh cDsnPlBhdGllbnQg YHluXMo5N1WfDgssiFT+ IE87XPUoPO89hZNllDCt z5owjAo1PdCkYAUgWSR7 kIeaSUhiq8IeOZEi B04hqOUwn0Z9AKSvgWig zELxOvZbvLV8oF4yKRfq auwou8byrryfMeuuu6cu do90mU64O14tVJuo ZHRoPSIzMCUiIHZhbGln cs3loD3jCx5+PGNvbCB3 gZN4jI7tMTUwSxG2SXvx I501OdQlqCViJroe b7wud2jcrNh3VqK8APXi tvTpcPztGNG8c2PtSd41 K18aUDiuKTOdCGOvNGBw BMJweCipct0rcU6s Ii8+AXKajHS6oUQ6bT2m LiYtNsW6JSmrR024RmIl iIFzNmufA69lK7LrwVB+ PWKaEiu3TCBtmBcc KM4vjSCwJUmvZv9kGJN8 SxMmOdWtDMidT2JsCYGm gbxqqcwvqRZ5ALIqBPLx sA95Ng1odKkqGXIs vKKZqY6oczsag7hfbqdy NsQeOFEmBCv2WGw1UGRi gTedZfXgJMB5XtP6BUY1 jWJdjJ0frHukzoha iW6tZ9QtNIFfrweuOj94 tW1nRmJhYzN5VUpsJka+ QD1JX99XXXSMYMJXXUMF RI50SR27zZMhp9G2 hXL4M3IyFXFoppoxaeuh pZT2KTEuQKIbbJ61aAYw KVudIv0iq6L2p822PULa KCIlcJ56Sk4upAoo PEFjjKGUiA5dumklx9bb zlsjFbWuUGLqWUn0XJm6 JYZivYowFzIiJWP1MvW4 YQW2nEFnfR5hiHjp dxdunY6tUav+MTAvMTcv KMp4RuymnIT+PHRkIHN0 vQtfIHueAYTbrO1uYJVj V3x2TeUmRjB9UWyj I0PyXFNzgoiwDs12dG5d JuObXrF4UXjkD7YerzC5 LOUerLVkXDefSYV8X08e u9R7WERdEAIxSGW7 zQF4eM7vuPozirtusRDv dDsgdmVydGljYWwtYWxp C730CJSgpVnlPvIkRQar BQWhYE92FQ04pQJc h8L0bKJ7H6CdBERztyjx pxlvjPI1JLLrZZKrkB87 kCXoLUmkIy1fd4G5i379 NDMwADUblN91Hz5j bBaxUFDxzQDWgO4dyoeb b6dlxgykPqVlNEGdPDp9 IXi5SISthWsrGxLqGQG0 QiT6EKR1bPChaQ5n qGhndwawkX6tDce+TUFM RTwvdGQ+HBEsDYP5yElj ZGxuVDKjzO6hLRMhC1r1 DpIjMpR3SMykD6Lv EXFvrfmiJu13nT0jAwGv HyJ6ZUilO8RimmX3YQIk sVKlFKzuCBU1C22qm2F4 FODaGANzZST7sXP5 uN3dhIdlkdxdhUKowXso qrSrdJccWNszDKbhI783 UBTumPhsBe9KHN76TL48 Q4MlLxtmxOCskWZ+ PHRhYmxlIHdpZHRoPScx BVFxMrDwwGsiZN5rVv2d ZGVyLWNvbGxhcHNlOiBj h3miGUWfPQwaCH8p wDauJ5CjuBS9PUXbg8m9 Jj33X24xK1DstEW+PGNv cQG6hZL9xX3rDpAxGgS6 IJbeC105FaDcrYRv Ncavm8cdr2fhaJe4IfJy SEOhvaSziLziFCB9a0Iy Xy30E01kUTbrQIDzCACf XWSlUBUbsHeijx3n qP3yEf3+DUYbkPT0zAF3 eX1yVhIpXoL0CDkgS082 TyXuiRMyEzfnS15jA8Kl dXA+ONJoShn4RCGy nUkoPF3zfJBbCRrmCn4m ZHM3HcNzVcWwVDxbR1Be ASNfewhqjghpiTB0HCCr GUYcfN53Bm3adWao Eo5kUCIrMUX7TXVbhZZo P5WcrT7hQjGuSMBsUBFz V7XugPCpUResA185FOaj DeH1YCJfasNiB6Bd BPNzhXymDbI3w8N5Iz9Z fRbioOUoJG5eBmOrZNe1 U4BhPkf0NYSooRlgRR0k sHEhMBawFj5tzAli sQamAT3rXGMppsslh033 AfPfx3coTFRqoNIdSEvm MYP4P77fc7E2RZYxUNCp HRH4ySK8oT2nwMlm bjogbGVmdDsgdmVydGlj YVocRYrqI165FRMlrUai MqNYDsw2S8PyLwn5ESDi jNduFM1nuQVyWOvu Uq3gkRpzwMrzFF5qOYEf zhuwn635MsQfu5mhFVNb tVCfKKsbRUO4I37kn9C4 VTKxFIVhEDZ3zAV0 cE0tjCxufyktvERgpRss vyUttGixAJjgIQwzZ460 SYVluFxwGc7BYqd2Y3Bw Ion1GGVarFrrTY6m qZWaCRhyVc2omFaypAay EQ6iKFZmlcajt554KpVo h0tdDRCiyFWoPUzvAKK9 B36rg7V9MUHqIBLn MPU9hGL5rJ8wfTroirdk bGVmdDsgdmVydGljYWwt TTdyE119SQDnhXqmShJh eWVyOjwvdGQ+PC90 ox64H1KaAqzkOpw7GSJk THE7pHO8tB6tEDQrCYuj l8P9iCZ2A3EhawQdpr6h x3bmKGAqUPaiM02q bGF (more content not included)... [facility]. The patient was examined and there are no changes to the H&P. Will proceed with coronary angiogram for positive antrolateral myocardial perfusion defect. Abnormal EKG, abnormal stress test, and the need for preoperative risk assessment. Anay Burrell MD [employer] - PGY6 [facility] ZULEYMAEwanda 04-08-2024 JEZNOTE RN educated pt on d/c instructions. RN provided pt with arm sling and educated pt on importance of not using arm for 24 hours for radial sites and limited physical activity for femoral sites. RN encouraged pt to voice any questions or concerns. Pt verbalizes no questions or concerns at this time. Pt was wheeled off of unit with all of belongings. Normal [facility] 04-06-2024 [facility] Cardiology Clinic Note Chief Complaint: New patient here to establish care. Ref from Dr. Devries for abnormal ECG. Patient is also requesting cardiac clearance prior to shoulder surgery with Dr. Neville. Had stress test 03/13/2024 at [facility]. Patient denies chest pain, SOB, palpitations, and lightheadedness/sync ope. HPI: Harvinder Che is a 58 y.o. male seen by his primary care physician for preoperative clearance for a right reversal total shoulder arthroplasty Past medical history of dyslipidemia and an abnormal EKG Cardiology ROS: Review of Systems Musculoskeletal: Positive for arthritis and joint pain. All other systems reviewed and are negative. Past Medical History He has no past medical history on file. Surgical History He has no past surgical history on file. Social History He has no history on file for tobacco use, alcohol use, and drug use. Family History No family history on file. Allergies Patient has no allergy information on record. Medications No current outpatient medications on file. Last Recorded Vitals BP 126/76 (BP Location: Right arm, Patient Position: Sitting) Pulse 103 Ht 1.803 m (5' 11 ) Wt 115 kg (254 lb) SpO2 96% BMI 35.43 kg/m??? Physical Examination: GENERAL: alert and oriented x3, well developed, in no acute distress. HEAD: atraumatic, normocephalic. EYES: ENRIQUE, EOMI. NECK: trachea midline, no JVD present, no carotid bruits present. CARDIAC: S1, S2 present. RRR. Harsh ESM heard at the base, rubs, or gallops. RESPIRATORY: CTAB, no increased effort of breathing, no rales, rhonchi, or wheezing. ABDOMEN: soft, nontender, nondistended. EXTREMITIES: no lower extremity edema, peripheral pulses are 2+ bilaterally. No rash/skin discoloration present. NEURO: strength/sensation equal and symmetric in bilateral upper and lower extremities. PSYCH: appropriate mood, affect, and judgement. INVESTIGATIONS: EKG 07/23/2023: Sinus rhythm, probable left atrial enlargement Stress test 03/13/2024: No ECG evidence of ischemia Myocardial perfusion imaging reveals a moderate-sized intensity reversible anterolateral perfusion defect. This is consistent with ischemia. This is an intermediate risk study. Transient ischemic dilation ratio is 1.20 Stress ejection fraction is 67% 12 lead EK04/06/2024 Sinus tachycardia, 101 bpm, anterior infarct age-indeterminate, lateral ST depressions abnormal EKG Assessment: Abnormal stress test Abnormal ECG possible anterior infarct, lateral ST depressions Ejection systolic murmur Dyslipidemia Preoperative evaluation R shoulder surgery Plan: Routine labs A complete echocardiogram - this should be obtained prior to cardiac catheterization. His murmur would suggest the presence of aortic stenosis, the presence and severity of which will influence therapeutic decision making should he be found to have coronary artery disease Given his abnormal EKG, abnormal stress test, and the need for preoperative risk assessment, I have recommended proceeding with invasive coronary angiography - Elective surgery should be deferred until his cardiovascular testing is complete - I emphasized the potential need to postpone surgery for at least 3 to 6 months should he require stent placement given the need for dual antiplatelet therapy Further recommendations pending the echocardiogram and cardiac catheterization Neil Schaffer MD, MPH, [facility], [facility], [facility] Interventional Cardiology Pager Email: [email or web address] Normal [facility] Office Visiton 04-06-2024 Follow-up visit [id number] Harvinder Che 1965 M Date Provider Department Center 04/06/2024 Stephen-NEIL SCHAFFER [facility] Family History Problem Relation Age of Onset Stroke Father Hypertension Father Family Status - Relation Status Age at Father Level of Service:20987 OR OFFICE/OUTPATIENT [facility] MDM [address] [facility] BMP Standardon 03-30-2024 eGFR Non AA >60 Invalid Interpretation Code [facility] Comment on above: Performed By: #### 1 [id number] #### [facility] (DEFAULT) [address] [place] [address] eGFR AA >60 Invalid Interpretation Code [facility] Comment on above: Performed By: #### 1 [id number] #### [facility] (DEFAULT) [address] [place] [address] Anion gap [Moles/Vol] 11.0 mmol/L Normal 5.0-19.0 [facility] Comment on above: Performed By: #### 1 [id number] #### [facility] (DEFAULT) [address] [place] [address] Calcium [Mass/Vol] 9.1 mg/dL Normal 8.9-10.3 [facility] Comment on above: Performed By: #### 1 [id number] #### [facility] (DEFAULT) [address] [place] [address] Chloride [Moles/Vol] 104 mmol/L Normal 101-111 [facility] Comment on above: Performed By: #### 1 [id number] #### [facility] (DEFAULT) [address] [place] [address] CO2 [Moles/Vol] 23 mmol/L Normal 21-32 [facility] Comment on above: Performed By: #### 1 [id number] #### [facility] (DEFAULT) [address] [place] [address] Creatinine [Mass/Vol] 0.77 mg/dL Low 0.90-1.30 [facility] Comment on above: Performed By: #### 1 [id number] #### [facility] (DEFAULT) [address] [place] [address] 76226 Glucose [Mass/Vol] 84.0 mg/dL Normal 74.0-118.0 [facility] Comment on above: Performed By: #### 1 [id number] #### [facility] (DEFAULT) [address] [place] [address] 10600 Osmolality 269 mOsm/L Invalid Interpretation Code [facility] Comment on above: Performed By: #### 1 [id number] #### [facility] (DEFAULT) [address] [place] [address] 92320 Potassium [Moles/Vol] 4.0 mmol/L Normal 3.6-5.1 [facility] Comment on above: Performed By: #### 1 [id number] #### [facility] (DEFAULT) [address] [place] [address] 63152 Sodium [Moles/Vol] 134.0 mmol/L Low 136.0-144.0 [facility] Comment on above: Performed By: #### 1 [id number] #### [facility] (DEFAULT) [address] [place] [address] [id number] Urea nitrogen [Mass/Vol] 17 mg/dL Normal 03-09 [facility] Comment on above: Performed By: #### 1 [id number] #### [facility] (DEFAULT) [address] [place] [address] 90524 Urea nitrogen/Creatinine [Mass ratio] 22.0 mg/mg High 4.6-16.2 [facility] Comment on above: Performed By: #### 1 [id number] #### [facility] (DEFAULT) [address] [place] [address] 19972 Progress Note - Nurseon 03-15 Progress Note - Nurse PAT reviewed by Dr. Li. Cardiac clearance requested d/t results of stress test performed on 03/13/24. Kerry at Dr. Neville's office made aware. [Electronically Signed on: 03/30/2024 12:04 EDT] Ruby Greenberg RN [Verified on: 03/30/2024 12:04 EDT] Ruby Greenberg RN Normal [facility] Progress Note - Nurse Patient had his PAT appointment on 03/27/2024- lab work CBC and BMP was ordered. BMP was not drawn as ordered and order dropped off due to time. On 03/30/2024 PSW noticed that BMP not completed. Lab was called per Alicia Ty RN and spoke with Shadow in lab. Shadow checked and was able to still run BMP on drawn lab tube. Shadow stated there was a new tech/ Pierre Tang working on 03/27/2024 and that she would address the issue of missed labwork with Pierre. [Electronically Signed on: 03/30/2024 09:26 EDT] Alicia Ty RN [Verified on: 03/30/2024 09:26 EDT] Alicia Ty RN Normal [facility] .Auto Diff 1on 03-27-2024 Auto [place] % 7 % Normal -12 [facility] Comment on above: Performed By: #### 7 [id number] #### [facility] (DEFAULT) [address] [place] [address] 87464 Baso Abs# 0.1 x10 Normal 0.0-0.2 [facility] Comment on above: Performed By: #### 7 [id number] #### [facility] (DEFAULT) [address] [place] [address] 41856 Basophils/100 WBC (Bld) 0.9 % Normal 0.2-2.0 [facility] Comment on above: Performed By: #### 7 [id number] #### [facility] (DEFAULT) [address] [place] [address] Eos Abs# 0.2 x10 Normal 0.0-0.4 [facility] Comment on above: Performed By: #### 7 676223, [id number], [id number] #### [facility] (DEFAULT) [address] [place] [address] 37718 Eosinophils/100 WBC (Bld) 2.1 % Normal 0.9-4.0 [facility] Comment on above: Performed By: #### 7 889773, [id number], [id number] #### [facility] (DEFAULT) [address] [place] [address] 31005 Lymph Abs# 1.6 x10 Normal 1.3-2.9 [facility] Comment on above: Performed By: #### 7 460417, [id number], [id number] #### [facility] (DEFAULT) [address] [place] [address] 48665 Lymphocytes/100 WBC (Bld) 14 % Normal 14-48 [facility] Comment on above: Performed By: #### 7 613464, [id number], [id number] #### [facility] (DEFAULT) [address] [place] [address] 90983 [place] Abs# 0.8 x10 Normal 0.0-0.8 [facility] Comment on above: Performed By: #### 7 261597, [id number], [id number] #### [facility] (DEFAULT) [address] [place] [address] Neut Abs# 8.1 x10 Normal 1.5-9.2 [facility] Comment on above: Performed By: #### 7 086956, [id number], [id number] #### [facility] (DEFAULT) [address] [place] [address] Neutrophils/100 WBC (Bld) 75 % Normal 44-88 [facility] Comment on above: Performed By: #### 7 657934, [id number], [id number] #### [facility] (DEFAULT) [address] [place] [address] CBC w/ Auto Diffon 4 Erythrocyte distribution width (RBC) [Ratio] 12.9 % Normal 11.5-15.0 [facility] Comment on above: Performed By: #### 7 771284, [id number], [id number] #### [facility] (DEFAULT) [address] [place] [address] Hematocrit (Bld) [Volume fraction] 43.1 % Normal 34.8-51.9 [facility] Comment on above: Performed By: #### 7 927188, 71915682, [id number] #### [facility] (DEFAULT) [address] [place] [address] Hemoglobin (Bld) [Mass/Vol] 15.4 g/dL Normal 11.8-17.7 [facility] Comment on above: Performed By: #### 7 346135, 83415244, [id number] #### [facility] (DEFAULT) [address] [place], [place] [id number] Man Diff? Auto Invalid Interpretation Code [facility] Comment on above: Performed By: #### 7 628855, [id number], [id number] #### [facility] (DEFAULT) [address] [place] [address] 79390 MCH (RBC) [Entitic mass] 33 pg Normal 24-34 [facility] Comment on above: Performed By: #### 7 441179, 96346951, [id number] #### [facility] (DEFAULT) [address] [place] [address] 82330 MCHC (RBC) [Mass/Vol] 36 g/dL Normal 26-37 [facility] Comment on above: Performed By: #### 7 159734, [id number], [id number] #### [facility] (DEFAULT) [address] [place] [address] MCV (RBC) [Entitic vol] 93 fL Normal 81-100 [facility] Comment on above: Performed By: #### 7 971353, 50339731, [id number] #### [facility] (DEFAULT) [address] [place] [address] Platelet 277 x10 Normal 138-427 [facility] Comment on above: Performed By: #### 7 024062, [id number], [id number] #### [facility] (DEFAULT) [address] [place] [address] 40328 Platelet mean volume (Bld) [Entitic vol] 8.7 fL Normal 6.3-10.2 [facility] Comment on above: Performed By: #### 7 343740, [id number], [id number] #### [facility] (DEFAULT) [address] [place] [address] RBC 4.62 x10 Normal 3.70-5.30 [facility] Comment on above: Performed By: #### 7 007465, [id number], [id number] #### [facility] (DEFAULT) [address] [place] [address] WBC 10.8 x10 High 3.5-10.5 [facility] Comment on above: Performed By: #### 7 800220, [id number], [id number] #### [place] [address] Coding Summaryon 03-03-2024 Coding Summary HTMLBase 64 SjowusqtTUs6zLa+PGhl YWQ+GW5IKDZtY43tjJRv lB3qR1OPEYaMIyndBRQM DXtGEuGcteYnQL1jbNSa ZXJu IC8+GT4mFJCkLvughLVq v9R7bAV6I82dkf1sCFsz qOZ0HUGfGoOiisfge6cg nZf1LGijGxqqQwCk RZZegE71VYP3zR86Ly44 oUDpyNIgp3pxlZt6QuXp RGLjMBW0bRdwVWqvq0Xv JHEfO63rcCGdd5O1 IGNvbGxhcHNlOyBlbXB0 wM7gLSvxinnxp1pokcse Ths4yb38rMEij2C7tQS4 W7NyylE6NISvoUOn DebhiSINrR8ubsuun0jw nooyZaGeOXXuWUy7PHr0 COSjdKiyWcVsAG34SDV1 KBTkhgKxO2RxGTEp nYzfGlE6u9G9Tm9XU3FP RjchK5KCEEZOAFfjwVL+ TY51uu61U1DjAanpSwf6 ZTWjRUV2uUL6eL8z OPJqSGjgp0P8lTQ3Q6Bg rzPdwy3zc3wwCBCsIYws O45beJWgq5X9FDWsqWF8 SIRhkIgpYiVhwV83 Oyc+XYCkpAysk5SlHkrg z9gnx4rnfMv0QwwbRBQc obArkVebFVR6l1NuHe1d ZHTawVK8kPQ3oO3r UbPoSxZ8TTomT763UlHl qAJgGftlH65jG5WclHI+ TRZaHal7IAAvqKrmNE4x U8LvLNEkonwihSLs qTxqEQ3fWYYuamanWAAb kK7tLECdJ3f9HoGcKzD3 YFgxW2FaQIHupvjpGy19 vL2cJpWgBcC1JHrp T1EzidB2QKPhtGOcEXkb FOQ0A09za7T9VSOrHHJp KVT1zOU6pF8uvSzdwqkx bGVmdDsgdmVydGlj AWfhIWqyW662ZZQqaFbt PkNvZGluZyBEYXRlOiAg MDgvMjAvMjAyNDwvdGQ+ ICYyEWV6mZubDTGj lUAhLVbaKx7mbEirqUos TG5cNHFlvuhjXQZnmU8l YGYnxQGzwTysIQ6fNJCn kvyfp305CpEjONB1 NUNlsWPyB8PuuF1tZlTk YDWcQKLdV9UukSThLQyu Q941JOibSxE1MPClmgVq Z7OlNGKywPmlLgN6 i5M4Rq1Nq7QwpbuqY1Ih xXLbMiOrOoohZDv2X0Mn PjwvdHI+DJ58MPNjXJ61 GRa6BEC1yYzvWLlh MQPfI3JixC7yEtMbXALb ZGRkOyc+PHRhYmxlIHdp ZHRoPScxMDAlJyBzdHls KY0pJl0jFGNnAVDi aTwptGBhAmNwx9puXQAu COosZI6wmEayV1CfcYP7 MXDjc9a2Zg24K35jO5Yy dXA+KAAblHX5aKF8 oR4cQcVcAoL2BIctX109 FuRtyGGsTrgmo9gsa7yl zPq1MxQ6WATrezEyyKqt EMH5t1CgTf82X92i IHdpZHRoPSIxNSUiIHZh ePqmor0btH1sIr9+PGNv mGR0uQS2qW4aRiShRyM0 JLgjJ356WwNhrDRx Xurxh7vuc1qzkDr1IvSs FPAhxgJsaBrlCOC1k4Ix Ko84R8SvgNyww3NtYol1 gk59gUAeu6S0wIZ8 E9QuEUSxhkffqUTkgOlw JE6cJBEtlwhqPMIvlW8w PCLgS8s7NvKdQiS7CKhr Y6WwhsF8HLRtvFBr FLLjlQJVgK7tgxhkl0fy qhnwZbGyANWhYFr7ZKc2 RSGizWieAbWoKOJ7RsJ5 TNS3sKZkwS5xgYnm kokuyX0cRhy+BFF2gQMt rANBOS1wAqbvvUG+PHRk YKD1sPzbHOxcQAZurJ9n QHEuA7a1ZyKlQdX0 AOxnG6RiuaK5BYIvaCCt TQGcnMHSjZ5sstkso5wr tugyRjDmADLtIZp4VFj8 LWFsaWduOiBsZWZ0 QxM1YDY6fACuvC4aaOaj dqkvuW5rGfn+QmlydGgg FRK9JMy9S2OcAyc0RDRm iPuzES3uyBWwEKzd Jq6ynTsjfDjsGS3uIFNy onged013KcDyt2yhJKUg qIUvHZtdGNS1X48ad9G8 XQViVIRkKIV3lFR0 cY8csXqsjhudoLFemDks itNymMzeLGbfLPxlR075 UEWgwSpqOxZsTDl7C6Wg Rfn8PPWdoLigUS8z rSChSOfgSi6aqFdeaDup DT6pBSVcsaowy823NmAj m1wcNNNzrZPtALyaXBP0 X84eo3N6ONFbVSHw HMA4uDO6lR7hrObjjepy bGVmdDsgdmVydGljYWwt XDhcF781NKXlpUshQfZg cYt9S7HyKtg5ROEu vYkfRN6mjYWdTUevTm1q sZdmxWpuJE5dZZQvgzmv j550GvSpy6dgNHUjiJJk DFltUAK6P12pw9W9 GSLoABPiESR2cOG5aU2x bGlnbjogbGVmdDsgdmVy aVjdHLlzMSlxK667VTNr cDsnPlBhdGllbnQg JIvaKOj9A8LyQleflUD+ VT50IVZiPB71gFNdrRDl r7awdTw3FgVoRHOsUWA0 nYwwRCcux5JjDVIg U05apPZco9J6UWCxyIrs uGIrDuYnxEJ2jI0bXQwp jhzmu3wgthnfGwsau7gj mw92fG57E99wBGnw ZHRoPSIzMCUiIHZhbGln jf7ylI8dFp3+PGNvbCB3 jXN6qG3xOUHiLtN8ZMrt M468RiIubDUlDgdz v9ebo7qhmJo0IcC0UZUl kkYrhIhsOTB9r6UvGl71 Y25pREnzVDCbMKAsWLDt JSZnoTvryy2fmS7e Ii8+OGAzhIL1pYS9qL0y FzAoRbO2JQawA970MhIp lALxIgfgF55iG7DytEB+ KHNlElc5VUYmiLfm HC5goDXxNTqpSy7gGTS3 BtUhLoBtXLvcO0TrFTKl atgosbmptRO6DRKcUPVw aM08Wg6nbPehMRLs zLJVjK8hepeua7rjaxkw BhWqUGQrOLu2HYk7VOQw pKnzIsUwXHA1GbV8FHV8 wKUxvV0ylRyeqwdf wT9uD0PjNIHyloyqAy17 yR8vZdViHjT2VEbcQxx+ RT5ZK04GDDTEGGCJUMDN ZF76EB43dBPjg5P4 fVA9L5UxZYBwhywrffru cUF0GYRgDJXykE26eGPg IQbhXc4hm8C1v884DFQb APTscI47Gv0rlLva LYLykSFBtN5tqfpxq0tx jscfMqQvQCMbRFr9PYj8 PCKrvRtlJoMpJRW1EuZ8 RDS5oKCvyO2iaYij iigznE6dDsu+MTAvMTcv CEb9AlvgfUF+PHRkIHN0 dXyrMDsyRGVhxP9sOSOo R0w5OpSnPlT4UNuh E7VrFCQbmyrgMa33lX4m RlOxBmB0XErbV6JrwsP5 KEWnmEQbWCczLYG6F64w l7A8BJDpXUWcGFX4 zPB8hN7ogErsnjmxeKPs dDsgdmVydGljYWwtYWxp J319CHGerVsqFrYwNCqo CPUaBZ95NV26mLHf n1T1fIE0B0ZyDQQzgpnh satuiZI9UNNqIWSrsQ97 dRDcTJkiJh2po9S3y324 HUNxYCMjhV70Ob4r fCpoCIAhiIBSoA8sehqu d6uefefoAlBxKBAtPNk5 PEj9LNPlcQaiXjXdZHC2 NcL5XTY1uKPmzJ1r rBytjeldeP9jJqf+TUFM RTwvdGQ+WCXfWJY7vNpo MFvvBRIavI5lKFOqC8l2 HxUaSyA0DOlbZ8Cy CGXdvwvyEu02sZ5kTzOo WrP9CXrlI7NjkyA7XIYp nDMpMYbhEPP0F18uz5Z7 YBAoSXCaWLV0vTS4 aE5xaXiooiafzTOotMmv erFnwFgfWRsdFTavF314 LBAhlRfgIh6GMW15VW42 X7DhKemgkZFjoDY+ PHRhYmxlIHdpZHRoPScx CSEzWoWnnYobXO8bXo7f ZGVyLWNvbGxhcHNlOiBj k5wvNHLfIEqsXL2g yLdyT8YyiWC2KSTcn3u8 Dg45H24yY6XmyAG+PGNv vRU7tOQ4aE2aYmYrPoX0 TReoL517SaYdwXTj Naale0yey1hygMz5SvBp NUCubbNpmTorKLW0k2Ig Ni22K60nMUauAEFnXIQe CSNhWJDsrFsfyh7g iB0jRc0+XPRmzSA8lVM2 yY6xUyHbDfO3RQywX400 QkJtkLKvKhivS37wE2Rb dXA+GOBoErk1XYZo iLuyFE0xwJLkOYphBb0i VMZ6SxMpJnLnZBpbA3Du DCPgcbrirtkqpWA1YKTd FKQbvO00Gt9pbLrr Ku6hADLhYXE4ZXMoeJRv Z8RutP0fCiNfETQzVDXv G9MleSLiVQjzI302JIyd NpP4AVUtjsVqU7Kj AUHbdQsnRbS7q7J7Wo2W sYhtiTLwVV4gZrToONn8 O9LzFoo3VNDfbTxvBI9q bEVdAOxuLz1emZay xGdlHB4wNUAkyxpnn352 UqCtf7yqJPNhqZJfWNqo RQS9S37ia8R8BJUqQTOx RSS1zSS1dC4dlJci bjogbGVmdDsgdmVydGlj UKqgFUkpN905YIAhvEwl NcOBIwo5O8QeLbi4KKOt bUokHB4gxLDmKQci Bl2crVmhuCmmYH0sXPJl kengt730TgWxt2abDPKn fFXrGDhbSAR6G07gx7X5 HNStPJXjJTV3eDE6 vH3rvBpyxzmbhGNylYkb esJzvDqtQMqsVNwaP092 ZKFjrWzoQr2UJwd8C8Zl Vzb0LOUsxKhcLO2w lPEjQVxsMd9upUywvZwz OU6dJIKzxeeih650UiXt m1twJZBgrCVaFClnSCV9 A18oq7G9UIFpUUEd OVH7cFN0sR7jhVkzuddl bGVmdDsgdmVydGljYWwt TDfmW238ZHMoeWlaKlVd eWVyOjwvdGQ+PC90 hx47W7CkKlffOfl4ORKq KFZ8jRS0xJ4jDOOmCUat c9W1gIQ5X2GbekBjxl0j r9ryDCWbPAeqE57o bGF (more content not included)... Normal [facility] Provider Orderson 02-24-2024 Provider Orders [id number]# 1.00OTGTIFF [facility] C MRSA Screenon 02-22-2024 C MRSA Screen Negative [facility] Comment on above: Performed By: #### 1 [id number] #### [facility] (DEFAULT) [address] [place] [address] .Auto Diff 1on 02-21-2024 Auto [place] % 7 % Normal -12 [facility] Comment on above: Performed By: #### 7 [id number], [id number], [id number] #### [facility] (DEFAULT) [address] [place] [address] Baso Abs# 0.1 x10 Normal 0.0-0.2 [facility] Comment on above: Performed By: #### 7 834272, [id number], [id number] #### [facility] (DEFAULT) [address] [place] [address] Basophils/100 WBC (Bld) 1.1 % Normal 0.2-2.0 [facility] Comment on above: Performed By: #### 7 460521, 85383907, [id number] #### [facility] (DEFAULT) [address] [place] [address] Eos Abs# 0.1 x10 Normal 0.0-0.4 [facility] Comment on above: Performed By: #### 7 685410, 46892721, [id number] #### [facility] (DEFAULT) [address] [place] [address] 61129 Eosinophils/100 WBC (Bld) 1.4 % Normal 0.9-4.0 [facility] Comment on above: Performed By: #### 7 371083, 12027317, [id number] #### [facility] (DEFAULT) [address] [place] [address] 44437 Lymph Abs# 2.0 x10 Normal 1.3-2.9 [facility] Comment on above: Performed By: #### 7 844942, 81307827, [id number] #### [facility] (DEFAULT) [address] [place] [address] 72476 Lymphocytes/100 WBC (Bld) 19 % Normal 14-48 [facility] Comment on above: Performed By: #### 7 947328, 18644280, [id number] #### [facility] (DEFAULT) [address] [place] [address] 38372 [place] Abs# 0.7 x10 Normal 0.0-0.8 [facility] Comment on above: Performed By: #### 7 857880, 36109795, [id number] #### [facility] (DEFAULT) [address] [place] [address] 45709 Neut Abs# 7.5 x10 Normal 1.5-9.2 [facility] Comment on above: Performed By: #### 7 157376, 20749602, [id number] #### [facility] (DEFAULT) [address] [place] [address] 46341 Neutrophils/100 WBC (Bld) 72 % Normal 44-88 [facility] Comment on above: Performed By: #### 7 527118, [id number], [id number] #### [facility] (DEFAULT) [address] [place] [address] 86679 BMP Standardon 02-21-2024 eGFR Non AA >60 Invalid Interpretation Code [facility] Comment on above: Performed By: #### 7 067400, 87662870, [id number] #### [facility] (DEFAULT) [address] [place] [address] 61014 eGFR AA >60 Invalid Interpretation Code [facility] Comment on above: Performed By: #### 7 562137, 48663550, [id number] #### [facility] (DEFAULT) [address] [place] [address] 12927 Anion gap [Moles/Vol] 9.8 mmol/L Normal 5.0-19.0 [facility] Comment on above: Performed By: #### 7 245772, 76283761, [id number] #### [facility] (DEFAULT) [address] [place] [address] 07369 Calcium [Mass/Vol] 9.3 mg/dL Normal 8.9-10.3 [facility] Comment on above: Performed By: #### 7 035274, 53790754, [id number] #### [facility] (DEFAULT) [address] [place] [address] 13714 Chloride [Moles/Vol] 97 mmol/L Low 101-111 [facility] Comment on above: Performed By: #### 7 607199, 98961815, [id number] #### [facility] (DEFAULT) [address] [place] [address] 53932 CO2 [Moles/Vol] 30 mmol/L Normal 21-32 [facility] Comment on above: Performed By: #### 7 848489, 49125418, [id number] #### [facility] (DEFAULT) [address] [place] [address] 65614 Creatinine [Mass/Vol] 0.80 mg/dL Low 0.90-1.30 [facility] Comment on above: Performed By: #### 7 013201, 77675206, [id number] #### [facility] (DEFAULT) [address] [place] [address] 31296 Glucose [Mass/Vol] 120.0 mg/dL High 74.0-118.0 [facility] Comment on above: Performed By: #### 7 325975, 87756038, [id number] #### [facility] (DEFAULT) [address] [place] [address] 74179 Osmolality 273 mOsm/L Invalid Interpretation Code [facility] Comment on above: Performed By: #### 7 960965, 63508662, [id number] #### [facility] (DEFAULT) [address] [place] [address] 78197 Potassium [Moles/Vol] 2.8 mmol/L Low 3.6-5.1 [facility] Comment on above: Performed By: #### 7 505051, 70231206, [id number] #### [facility] (DEFAULT) [address] [place] [address] 16576 Sodium [Moles/Vol] 134.0 mmol/L Low 136.0-144.0 [facility] Comment on above: Performed By: #### 7 215690, 45009881, [id number] #### [facility] (DEFAULT) [address] [place] [address] Urea nitrogen [Mass/Vol] 23 mg/dL Normal 8-26 [facility] Comment on above: Performed By: #### 7 828740, 96729113, [id number] #### [facility] (DEFAULT) [address] [place] [address] Urea nitrogen/Creatinine [Mass ratio] 28.7 mg/mg High 4.6-16.2 [facility] Comment on above: Performed By: #### 7 501385, [id number], [id number] #### [facility] (DEFAULT) [address] [place] [address] 77610 CBC w/ Auto Diffon 4 Erythrocyte distribution width (RBC) [Ratio] 12.8 % Normal 11.5-15.0 [facility] Comment on above: Performed By: #### 7 394514, 34741884, [id number] #### [facility] (DEFAULT) [address] [place] [address] 14480 Hematocrit (Bld) [Volume fraction] 40.2 % Normal 34.8-51.9 [facility] Comment on above: Performed By: #### 7 535725, 95578792, [id number] #### [facility] (DEFAULT) [address] [place] [address] 66951 Hemoglobin (Bld) [Mass/Vol] 14.0 g/dL Normal 11.8-17.7 [facility] Comment on above: Performed By: #### 7 938482, 76400139, [id number] #### [facility] (DEFAULT) [address] [place] [address] 87414 MCH (RBC) [Entitic mass] 33 pg Normal 24-34 [facility] Comment on above: Performed By: #### 7 524539, 51518170, [id number] #### [facility] (DEFAULT) [address] [place] [address] 59915 MCHC (RBC) [Mass/Vol] 35 g/dL Normal 26-37 [facility] Comment on above: Performed By: #### 7 128726, 62888752, [id number] #### [facility] (DEFAULT) [address] [place] [address] 47377 MCV (RBC) [Entitic vol] 94 fL Normal 81-100 [facility] Comment on above: Performed By: #### 7 716853, 22122363, [id number] #### [facility] (DEFAULT) [address] [place] [address] 58283 Platelet 274 x10 Normal 138-427 [facility] Comment on above: Performed By: #### 7 132654, 37623460, [id number] #### [facility] (DEFAULT) [address] [place] [address] 14051 Platelet mean volume (Bld) [Entitic vol] 8.2 fL Normal 6.3-10.2 [facility] Comment on above: Performed By: #### 7 597600, 30318030, [id number] #### [facility] (DEFAULT) [address] [place] [address] 16266 RBC 4.28 x10 Normal 3.70-5.30 [facility] Comment on above: Performed By: #### 7 919699, 39574956, [id number] #### [facility] (DEFAULT) [address] [place] [address] 33688 WBC 10.5 x10 Normal 3.5-10.5 [facility] Comment on above: Performed By: #### 7 669670, 37021551, [id number] #### [facility] (DEFAULT) [address] [place] [address] Man Diff? Auto Invalid Interpretation Code [facility] Comment on above: Performed By: #### 7 871305, 51202048, [id number] #### [facility] (DEFAULT) [address] [place] [address] UA Pmmzh5io 02-21-2024 UA Bacteria None Normal [facility] Comment on above: Order Comment: Urina lysis Microscopic order added on by [employer] Rules system. Performed By: #### 7 675563, [id number], [id number] #### [facility] (DEFAULT) [address] [place] [address] UA RBC 3-5 [facility] Comment on above: Order Comment: Urina lysis Microscopic order added on by [employer] Rules system. Performed By: #### 7 394521, [id number], [id number] #### [facility] (DEFAULT) [address] [place] [address] UA WBC 0-2 [facility] Comment on above: Order Comment: Urina lysis Microscopic order added on by [employer] Rules system. Performed By: #### 7 919929, [id number], [id number] #### [facility] (DEFAULT) [address] [place] [address] UA w Culture if Ind Standard on 02-21-2024 Breakpoint UA [facility] Comment on above: Performed By: #### 7 [id number], [id number], [id number] #### [facility] (DEFAULT) [address] [place] [address] Color (U) Yellow [facility] Comment on above: Performed By: #### 7 [id number], [id number], [id number] #### [facility] (DEFAULT) [address] [place] [address] Culture? No [facility] Comment on above: Result Comment: Resu lt created by rule GL_MAGR_ADD_UA_CULT Result created by rule GL_MAGR_ADD_UA_CULT1 Performed By: #### 7 [id number], [id number], [id number] #### [facility] (DEFAULT) [address] [place] [address] Glucose (U) [Mass/Vol] Negative Normal [facility] Comment on above: Performed By: #### 7 [id number], [id number], [id number] #### [facility] (DEFAULT) [address] [place] [address] 50965 Ketones Ql (U) Negative Normal [facility] Comment on above: Performed By: #### 7 [id number], [id number], [id number] #### [facility] (DEFAULT) [address] [place] [address] 29948 Micro? Indicated Invalid Interpretation Code [facility] Comment on above: Result Comment: Resu lt created by rule GL_MAGR_ADD_UA_MICRO Performed By: #### 7 [id number], [id number], [id number] #### [facility] (DEFAULT) [address] [place] [address]2984 UA Bilirubin Negative Normal [facility] Comment on above: Performed By: #### 7 [id number], [id number], [id number] #### [facility] (DEFAULT) [address] [place] [address]148 UA Blood MODERATE Abnormal NEGATIVE [facility] Comment on above: Performed By: #### 7 [id number], [id number], [id number] #### [facility] (DEFAULT) [address] [place] [address]6938 UA Clarity CLEAR Normal CLEAR [facility] Comment on above: Performed By: #### 7 [id number], [id number], [id number] #### [facility] (DEFAULT) [address] [place] [address] 42360 UA Leuk Est Negative Normal NEGATIVE [facility] Comment on above: Performed By: #### 7 [id number], [id number], [id number] #### [facility] (DEFAULT) [address] [place] [address]78 UA Nitrite Negative Normal NEGATIVE [facility] Comment on above: Performed By: #### 7 [id number], [id number], [id number] #### [facility] (DEFAULT) [address] [place] [address]0479 UA pH 6.0 Normal 5-8 [facility] Comment on above: Performed By: #### 7 [id number], [id number], [id number] #### [facility] (DEFAULT) [address] [place] [address]30 UA Protein Negative Normal NEGATIVE [facility] Comment on above: Performed By: #### 7 [id number], [id number], [id number] #### [facility] (DEFAULT) [address] [place] [address]952 UA Spec Grav >=1.030 Normal 1.001-1.035 [facility] Comment on above: Performed By: #### 7 [id number], [id number], [id number] #### [facility] (DEFAULT) [address] [place] [address]131 UA Urobilinogen 2.0 mg/dL Abnormal 0.2-1.0 [facility] Comment on above: Performed By: #### 7 [id number], [id number], [id number] #### [facility] (DEFAULT) [address] [place] [address]376 Urine Source Clean Catch Normal [facility] Comment on above: Performed By: #### 7 [id number], [id number], [id number] #### [facility] (DEFAULT) [address] [place] [address]88 MR SHOULDER RIGHT WO IV CONT [facility] 02-05-2024 MR SHOULDER RIGHT WO IV CONTRAST EXAM: MR SHOULDER RIGHT WO IV CONTRAST HISTORY: Shoulder pain and limited range of motion TECHNIQUE: Multiplanar multisequence MRI of the shoulder was performed Without contrast. COMPARISON: Radiographs June 04, 2023. FINDINGS: Mild degenerative changes of the acromioclavicular joint with small undersurface osteophyte formation. The acromion is curved. Coracoclavicular ligament intact. Small amount of subacromial/subdelto id bursal fluid. Full-thickness tear of distal supraspinatus and infraspinatus tendons with retraction of torn fibers up to approximately 5.5 cm from the footprint. High riding humeral head. Severe atrophy and fatty alteration of supraspinatus and infraspinatus muscles. Evaluation of subscapularis tendon is suboptimal secondary to internal rotation of the humerus however no definitive tear is identified. Teres minor tendon is intact. Full-thickness tear of the intra-articular long head biceps tendon. No labral tear identified. Partial-thickness cartilage loss of the inferomedial humeral head without well-defined cartilage defect. Small glenohumeral joint effusion . IMPRESSION: Full-thickness tear of distal supraspinatus and infraspinatus tendons with atrophy and fatty infiltration of these muscles. Full-thickness tear of the long head biceps tendon. ELECTRONICALLY SIGNED BY: Az Grady, Normal Not Available Comment on above: Order Comment: MRI R T shoulder without. NOM[facility] imaging. MR LOWER EXTREMITY JOINT RIG HT WO IV CONTRASTon 11-12-2023 MR LOWER EXTREMITY JOINT RIGHT WO IV CONTRAST EXAMINATION: MR LOWER EXTREMITY JOINT RIGHT WO IV CONTRAST HISTORY: RT knee pain instability. History of prior arthroscopy. TECHNIQUE: Routine non-contrast MRI of the knee, RIGHT COMPARISON: MRI 06/28/2023. RESULT: MENISCI: Medial Meniscus: Increased signal within the body and posterior horn, without distinct extension to the articular surface, likely degenerative, and similar to prior. Lateral Meniscus: Bucket handle tear of the posterior horn, with displaced bucket-handle fragment located toward the notch adjacent to the anterior horn. LIGAMENTS: ACL, PCL, MCL, and LCL complex intact. CARTILAGE: Small to moderate area of full-thickness chondral loss involving the trochlea with subchondral cystic change. Multiple small areas of full-thickness chondral fissuring involving the patella. Small area of low-grade partial-thickness chondral loss lateral compartment. TENDONS: Distal quadriceps intact. Patellar tendon intact. Popliteus intact. BONES AND MARROW: No evidence for fracture or marrow replacing process. Subchondral edema underlying the chondral loss. Other areas of minimal bone marrow edema, likely reactive or contusions. MUSCLES: Muscle bulk and signal intensity are normal. JOINT FLUID AND SYNOVIUM: Small to moderate joint effusion. No synovitis. Small Garay's cyst. OTHER: Subcutaneous edema. IMPRESSION: Bucket-handle tear of the lateral meniscus. Osteoarthritis as discussed. ELECTRONICALLY SIGNED BY: Daniele Enrique MD Normal Not Available ECG 12 leadon 07-23-2023 TRACEMASTERVUE [facility] MR KNEE RIGHT WO IV CONTRAST on 06-20-2023 MR KNEE RIGHT WO IV CONTRAST Exam: MR KNEE RIGHT WO IV CONTRAST History: Lateral knee pain. Knee popping and instability. Technique: Multiplanar multisequence MRI of the knee was performed without contrast. Comparison: Radiographs of the knee June 04, 2023 Findings: Quadriceps and patellar tendons are intact. No joint effusion. Anterior and posterior cruciate ligaments are intact. The medial collateral ligament, lateral collateral ligament, and popliteus are intact. Subtle peripheral vertical longitudinal tear of the posterior horn of the lateral meniscus. Horizontally oriented linear hyperintense signal within the body through posterior horn of the medial meniscus does not definitively reach the articular surface. 6 mm partial-thickness cartilage defect of the lateral tibial plateau. Multiple tiny partial-thickness cartilage defects of the patella. Full-thickness cartilage fissure of the medial patellar facet with tiny focus of subcortical bone marrow edema. Popliteal fossa structures are intact. No Garay cyst. IMPRESSION: Peripheral vertical longitudinal tear of the posterior horn of the lateral meniscus. Mild osteoarthritis. ELECTRONICALLY SIGNED BY: Az Grady DO Normal Not Available XR KNEE 4+ VIEWS RIGHTon XR KNEE 4+ VIEWS RIGHT EXAM: XR KNEE 4+ VIEWS RIGHT HISTORY: Chronic right knee pain. TECHNIQUE: 5 views of the knee obtained. COMPARISON: None available FINDINGS: No acute fracture or dislocation. Joint spaces of the knee are maintained. Tiny medial and patellofemoral compartment marginal osteophyte formation. No knee joint effusion. Soft tissues are within normal limits. IMPRESSION: No acute osseous abnormality. Mild degenerative changes. ELECTRONICALLY SIGNED BY: Az Grady DO Normal Not Available XR SHOULDER 2+ VIEWS RIGHTon 06-04-2023 XR SHOULDER 2+ VIEWS RIGHT CLINICAL HISTORY: Check for degenerative change COMPARISON: NONE. FINDINGS: There are no lytic or sclerotic lesions. There is no acute fracture or subluxation. The humeral head is located. There is severe narrowing of the glenohumeral joint and the subacromial space. The AC joint and the clavicle are unremarkable. The visualized portions of the lung, ribs, and chest wall soft tissues are unremarkable. IMPRESSION: There are no acute osseous changes. ELECTRONICALLY SIGNED BY: Beto Gallardo MD Normal Not Available Vital Signs Date Time Vital Sign Value Performing Clinician Facility 05-21-2024 11:07-0500 Diastolic blood pressure 81 mm[Hg] Duane Goldberg [facility] 05-21-2024 11:07-0500 Heart rate 71 /min Duane Goldberg [facility] 05-21-2024 11:07-0500 Mean blood pressure 98 mm[Hg] Duane Goldberg [facility] 05-21-2024 11:07-0500 Systolic blood pressure 131 mm[Hg] Duane Goldberg [facility] 05-21-2024 11:07-0500 Heart rate 69 /min Duane Goldberg [facility] 05-21-2024 11:07-0500 SaO2% (BldA) [Mass fraction] 96 % Duane Goldberg [facility] 05-21-2024 11:06-0500 Body temperature 98.6 [degF] Duane Goldberg [facility] 05-21-2024 11:06-0500 Blood Pressure Location Duane Goldberg [facility] 05-21-2024 11:06-0500 Diastolic blood pressure 80 mm[Hg] Duane Goldberg [facility] 05-21-2024 11:06-0500 Mean blood pressure 96 mm[Hg] Duane Goldberg [facility] 05-21-2024 11:06-0500 Systolic blood pressure 127 mm[Hg] Duane Goldberg [facility] 05-21-2024 11:06-0500 Respiratory rate 16 /min Duane Goldberg [facility] 05-21-2024 09:51-0500 Body height 172.7 cm Duanesumit Goldberg DO Work Phone: [facility] 05-21-2024 09:51-0500 Body mass index (BMI) [Ratio] 38.01 kg/m2 Duane Goldberg DO Work Phone: [facility] 05-21-2024 09:51-0500 Body weight 113.4 kg Duane Goldberg DO Work Phone: [facility] 2024 14:47-0400 Body height 172.7 cm Duane Goldberg DO Work Phone: [facility] 2024 14:47-0400 Body mass index (BMI) [Ratio] 38.01 kg/m2 Duane Goldberg DO Work Phone: [facility] 2024 14:47-0400 Body temperature 97.39 [degF] Duane Goldberg DO Work Phone: [facility] 2024 14:47-0400 Body weight 113.4 kg Duane Goldberg DO Work Phone: [facility] 07-23-2023 12:49-0500 Body height 180.3 cm Pmh [address] [facility] 07-23-2023 12:49-0500 Body mass index (BMI) [Ratio] 36.54 kg/m2 Pmh 1 [facility] [place] [facility] 07-23-2023 12:49-0500 Body weight 118.84 kg Pmh [address] [facility] Encounters Encounter Date Encounter Type Care Provider Facility Start: 05-27-2024 End: 05-27-2024 ambulatory [facility] Start: 05-21-2024 End: 05-21-2024 Clinisync Result Encounter Duane Goldberg DO Work Phone: [facility] External Department Unsolicited Start: 05-21-2024 End: 05-21-2024 Clinisync Result Encounter Duane Goldberg DO Work Phone: [facility] External Department Unsolicited Start: 05-21-2024 End: 05-21-2024 ambulatory Duane Goldberg [place]: 05-21-2024 End: 05-21-2024 Patient encounter procedure Duane Watkins Nadia [facility] Start: 05-21-2024 End: 05-21-2024 Patient encounter procedure Duane Goldberg DO Work Phone: [facility] Comment on above: Rotator cuff tear ar thropathy of right shoulder (Primary Dx) Start: 05-21-2024 End: 05-21-2024 ambulatory DUANE GOLDBERG Not Available Start: 2024 End: 2024 Patient encounter procedure Duane Goldberg DO Work Phone: [facility] Comment on above: Right shoulder pain, unspecified chronicity (Primary Dx); Rotator cuff tear arthropathy of right shoulder Start: 2024 End: 2024 ambulatory DUANE Watkins NADIA Not Available Start: 2024 End: 2024 ambulatory DUANE GOLDBERG Not Available Start: 04-09-2024 End: 04-15-2024 Telephone encounter Justin Neville DO Work Phone: [facility] Comment on above: referral Start: 04-08-2024 End: 04-08-2024 ambulatory [facility] Start: 04-06-2024 End: 04-06-2024 ambulatory [facility] Start: 04-06-2024 End: 04-06-2024 Encounter for other preprocedural examination [facility] Start: 03-27-2024 End: 03-27-2024 ambulatory DANIELE DEVRIES Facility:[facility] Start: 03-17-2024 End: 03-17-2024 ambulatory IVORY WILKERSON Not Available Start: 03-13-2024 End: 03-13-2024 ambulatory DANIELE DEVRIES [facility] Start: 03-13-2024 End: 03-13-2024 ambulatory DANIELE DEVRIES [facility] Start: 03-03-2024 End: 03-03-2024 ambulatory JUSTIN NEVILLE Not Available Start: 03-02-2024 End: 03-02-2024 ambulatory DANIELE DEVRIES Not Available Start: 02-25-2024 ambulatory DANIELE DEVRIES Facility:[facility] Start: 02-21-2024 End: 02-21-2024 ambulatory DANIELE DEVRIES Facility:[facility] Start: 02-18-2024 End: 02-18-2024 ambulatory JUSTIN Roland JAMIN Not Available Start: 02-17-2024 End: 02-17-2024 ambulatory DAMARIS Healy MIRNA Not Available Start: 02-11-2024 End: 02-11-2024 ambulatory JUSTIN A JAMIN Not Available Start: 02-05-2024 End: 02-05-2024 ambulatory JUSTIN A JAMIN Not Available Start: 01-29-2024 End: 01-29-2024 ambulatory DAMARIS S MIRNAHER Not Available Start: 01-28-2024 End: 01-28-2024 ambulatory JUSTIN A JAMIN Not Available Start: 01-22-2024 End: 01-22-2024 ambulatory DANIELE DEVRIES Not Available Start: 01-07-2024 End: 01-07-2024 ambulatory JUSTIN A JAMIN Not Available Start: 12-11-2023 End: 12-11-2023 ambulatory CHAPITO WEBB Not Available Start: 12-04-2023 End: 12-04-2023 Evaluation and management of inpatient OLAMIDECorky TOMLINSON [facility] Start: 12-04-2023 End: 12-04-2023 Evaluation and management of inpatient JUSTIN Roland JAMIN [facility] Start: 12-02-2023 End: 12-02-2023 ambulatory DAMARIS Healy MIRNA Not Available Start: 11-21-2023 End: 11-21-2023 ambulatory DANIELE Roland KEVIN [facility] Start: 11-19-2023 End: 11-19-2023 ambulatory JUSTIN A JAMIN Not Available Start: 11-12-2023 End: 11-12-2023 ambulatory JUSTIN A JAMIN Not Available Start: 11-05-2023 End: 11-05-2023 ambulatory JUSTIN A JAMIN Not Available Start: 10-22-2023 End: 10-22-2023 ambulatory TODD VALDEZ Not Available Start: 10-21-2023 End: 10-22-2023 Emergency department patient visit CORWIN SOSA [facility] Start: 08-14-2023 End: 08-14-2023 ambulatory CHAPITO B APLING Not Available Start: 08-07-2023 End: 08-07-2023 Evaluation and management of inpatient LIZANDRO DURHAM [facility] Start: 08-07-2023 End: 08-07-2023 Evaluation and management of inpatient JUSTIN NEVILLE [facility] Start: 07-25-2023 End: 07-25-2023 ambulatory GERALDINE Bernard HEMMER Not Available Start: 07-23-2023 End: 07-23-2023 Patient encounter procedure Pmh Pre-Admission Testing 1 [facility] - Pre Admit Comment on above: Preop examination (P rimary Dx) Start: 07-23-2023 End: 07-23-2023 Preprocedural examination done Pm [address] [facility] Start: 07-23-2023 End: 07-23-2023 ambulatory PAULINA OLSON [facility] Start: 07-23-2023 Encounter for other preprocedural examination DANIELE BROWN [facility] Start: 07-23-2023 End: 07-23-2023 ambulatory JUSTIN NEVILLE Not Available Start: 07-02-2023 End: 07-02-2023 ambulatory JUSTIN NEVILLE Not Available Start: 06-28-2023 End: 06-28-2023 ambulatory DANIELE Schaefer DEVRIES Not Available Start: 06-20-2023 End: 06-20-2023 ambulatory DANIELE B DEVRIES Not Available Start: 06-12-2023 End: 06-12-2023 ambulatory CHAPITO B APLING Not Available Start: 06-11-2023 End: 06-11-2023 ambulatory GERALDINE Bernard HEMMER Not Available Start: 06-04-2023 End: 06-04-2023 ambulatory GERALDINE M HEMMER Not Available Start: 05-28-2023 End: 05-28-2023 ambulatory GERALDINE M HEMMER Not Available Start: 05-16-2020 End: 05-16-2020 Patient encounter procedure CHRISTIAN SUTTON Facility:[facility]1 Procedures Date Procedure Procedure Detail Performing Clinician Start: 05-21-2024 UA WITH CULT RFLX Duane Goldberg DO Work Phone: Start: 2024 Radex shoulder compl ete minimum 2 views Duane Goldberg Work Phone: Start: 01-02-2017 Colonoscopy Pmh 1 Appendectomy Duane Goldberg Arthroscopy of knee Duane mota Cholecystectomy Duane Goldberg Repair of tendo achilles Sharan on Nadia Plan of Treatment Date Care Activity Detail Author Start: 05-16-2030 DTaP,Tdap and Td Vac cines (4 - Td or Tdap) DTaP,Tdap and Td Vaccines (4 - Td or Tdap) [facility] Start: 01-02-2027 Screening for malign ant neoplasm of colon [facility] Start: 07-23-2024 Adult BMI Screening Adult BMI Screen ing [facility] Start: 07-23-2024 Tobacco Screening Tobacco Screening [facility] Start: 06-25-2024 End: 06-25-2024 Patient encounter procedure 06/25/2024 9:15 AM EST Office Visit [facility] [address] [place] [id number] Duane Goldberg, DO [address] [place] [address] [facility] Start: 2024 End: 2024 Patient encounter procedure 2024 2:15 PM EDT Office Visit [facility] [address] [facility] [place] [id number] Duane Goldberg, DO [address] [place] [address] [facility] Start: 03-15-2024 Influenza vaccination Influenza Vacc ine (#1) [facility] Start: 08-07-2023 End: 08-07-2023 Admission to same day surgery center 08/07/2023 11:00 AM EST - 08/07/2023 12:00 PM EST Surgery [facility] - Surgery [address] [place] [address] Justin Neville, DO [address] [place] [address] ARTHROSCOPIC MENISCECTOMY KNEE [91305 (CPT )] [facility] - Surgery Comment on above: ARTHROSCOPIC MENISCE CTOMY KNEE [05538 (CPT )] Start: 08-07-2023 End: 08-07-2023 Arthrs kne surg w/meniscectomy med/lat w/shvg ARTHROSCOPIC MENISCECTOMY KNEE right knee meniscal tear 08/07/2023 11:00 AM EST [facility] Start: 08-07-2023 Subsequent hospital visit by physician 08/07/2023 11:00 AM EST Hospital Encounter [facility] - Surgery [address] [place] [place] [address] Justin Neville, [address] [facility] [address] [place] [address] [facility] Start: 03-15-2023 COVID-19 Vaccine ( season) COVID-19 Vaccine ( season) [facility] Start: 03-15-2023 Influenza vaccination Influenza Vacc ine [facility] Start: 01-02-2022 Screening for malign ant neoplasm of colon Colonoscopy [facility] Start: 2013 Administration of varicella zoster vaccine Zoster (Shingles) Vaccine (1 of 2) [facility] Start: 1981 Adult BMI Follow Up Plan Adult BMI Follow Up Plan [facility] Start: 1975 Depression Screening Depression Scre ening [facility] Start: 1963 Screening for malign ant neoplasm of colon [facility] Immunizations Immunization Date Immunization Notes Care Provider Fa cili 05-16-2020 diphtheria, tetanus toxoids and pertussis vaccine Justin Neville DO Work Phone: [facility] 05-16-2020 tetanus toxoid, redu clovis diphtheria toxoid, and acellular pertussis vaccine, adsorbed Justin Neville DO Work Phone: [facility] Healthcare 09-12-2009 tetanus toxoid, redu clovis diphtheria toxoid, and acellular pertussis vaccine, adsorbed Justin Franzston DO Work Phone: [facility] Healthcare Payers Date Payer Category Payer Unknown [employer] [id number] 2022-Present [phone] [address] [address] [place] [address] [id number] 2020 Private Health Insurance [id number] .[id number]. 2.7.3.907664.315 2017 Unknown [id number] 1963 Unknown [id number] 2.16.840.1.660777.3.579. 2.593 1963 Unknown [id number] 2.16.840.1.796064.3.579. 2.1286 1963 Unknown [id number] 2.16.840.1.244938.3.579. 2.1286 1963 Unknown [id number] 2.16.840.1.306869.3.579. 2.1286 1963 Unknown [id number] 2.16.840.1.800616.3.579. 2.1286 1963 Unknown [id number] 2.16.840.1.924815.3.579. 2.1286 1963 Unknown [id number] 2.16.840.1.083922.3.579. 2.1286 1963 Unknown [id number] 2.16.840.1.159507.3.579. 2.1286 1963 Unknown [id number] 2.16.840.1.879162.3.579. 2.1286 1963 Unknown [id number] 2.16.840.1.824905.3.579. 2.1286 1963 Unknown [id number] 2.16.840.1.874828.3.579. 2.1286 1963 Unknown [id number] 2.16.840.1.306951.3.579. 2.6 1963 Unknown [id number] 2.16.840.1.407143.3.579. 2.1286 1963 Unknown [id number] 2.16.840.1.938344.3.579. 2.6 1963 Unknown [id number] 2.16.840.1.230988.3.579. 2.6 1963 Unknown [id number] 2.16.840.1.735808.3.579. 2.6 1963 Unknown [id number] 2.16.840.1.318755.3.579. 2.718 1963 Unknown [id number] 2.16.840.1.016751.3.579. 2.718 1963 Unknown [id number] 2.16.840.1.390599.3.579. 2.718 1963 Unknown [id number] 2.16.840.1.577096.3.579. 2.1259 1963 Unknown [id number] 2.16.840.1.108747.3.579. 2.9 1963 Unknown [id number] 2.16.840.1.049845.3.579. 2.1259 1963 Unknown [id number] 2.16.840.1.070757.3.579. 2.1259 1963 Unknown [id number] 2.16.840.1.681187.3.579. 2.1259 1963 Unknown [id number] 2.16.840.1.546230.3.579. 2.1259 1963 Unknown [id number] 2.16.840.1.413221.3.579. 2.1258 1963 Unknown [id number] 2.16.840.1.650830.3.579. 2.1258 1963 Unknown [id number] 2.16.840.1.834622.3.579. 2.1258 1963 Unknown [id number] 2.16.840.1.079822.3.579. 2.1258 1963 Unknown [id number] 2.16.840.1.656663.3.579. 2.1258 1963 Unknown [id number] 2.16.840.1.312898.3.579. 2.1258 1963 Unknown [id number] 2.16.840.1.458919.3.579. 2.1258 1963 Unknown [id number] 2.16.840.1.001318.3.579. 2.1258 1963 Unknown [id number] 2.16.840.1.092576.3.579. 2.1258 1963 Unknown [id number] 2.16.840.1.950233.3.579. 2.1258 1963 Unknown [id number] 2.16.840.1.019298.3.579. 2.1258 1963 Unknown [id number] 2.16.840.1.581642.3.579. 2.1258 1963 Unknown [id number] 2.16.840.1.285787.3.579. 2.1258 1963 Unknown [id number] 2.16.840.1.917574.3.579. 2.1258 1963 Unknown [id number] 2.16.840.1.594759.3.579. 2.1258 1963 Unknown [id number] 2.16.840.1.246455.3.579. 2.1258 1963 Unknown [id number] 2.16.840.1.962655.3.579. 2.1259 1963 Unknown [id number] 2.16.840.1.667896.3.579. 2.1259 1963 Unknown [id number] 2.16.840.1.444681.3.579. 2.1259 1963 Unknown [id number] 2.16.840.1.204229.3.579. 2.9 1963 Unknown [id number] 2.16.840.1.797438.3.579. 2.1259 1963 Unknown [id number] 2.16.840.1.025949.3.579. 2.9 1963 Unknown [id number] 2.16.840.1.519714.3.579. 2.9 1963 Unknown [id number] 2.16.840.1.405864.3.579. 2.1259 1963 Unknown [id number] 2.16.840.1.312021.3.579. 2.1259 1963 Unknown [id number] 2.16.840.1.942906.3.579. 2.727 1959 Unknown [id number] Social History Date Type Detail Facility Start: 07-23-2023 End: 01-29-2024 Tobacco smoking status NHIS Ex-smoker [facility] Start: 07-15-1984 End: 07-15-1986 History of tobacco use Current smoker [facility] Start: 07-23-2023 End: 01-29-2024 Tobacco use and exposure Smokeless tobacco non-user [facility] Start: 07-23-2023 End: 05-21-2024 Alcohol intake Ex-drinker (finding) [facility] Start: 07-23-2023 End: 05-21-2024 History of Social function [facility] Start: 07-23-2023 End: 05-21-2024 Tobacco use panel [facility] [place] Housing Instability Unknown [facility] Start: 07-23-2023 Tobacco Comment Quit over 20 years a marlee [employer] Start: 1965 Sex Assigned At Not on file P [employer] Start: 07-15-1984 End: 07-15-1986 History of tobacco use Cigarette Smoker [facility] Medical Equipment Procedure Code Equipment Code Equipment Origin al Text Equipment Identifier Dates [place] Sut 5.5mm Swivelock C Cls Eylt Vnt Bcmps Pk 19.1mm Ea=Bill Only - Sna - [id number] Start: 06-02-2021 Tissue Hmn 2x3cm [employer] - [id number] - [id number] Start: 06-02-2021 Implant System, Internalbrace Ligament Augmentation Repair, Plus, Biocomposite [id number], [id number] FDA Start: 06-02-2021 Functional Status Date Assessment Result Facility 05-21-2024 Functional Status No [facility] Clinical Notes 07-23-2023 to 05-27-2024 Duane Goldberg, - 05/21/2024 9:15 AM Becca Goldberg, - 2024 2:15 PM EDTTelephone Encounter - Janina Moreira - 04/09/2024 2:22 PM EDTPatient Instructions Note Date & Type Note Facility 05-27-2024 Note [facility] Note Chief Complaint: Patient here for follow up heart cath. Simvastatin was switched to atorvastatin. Denies chest pain, SOB, and palpitations. HPI: Harvinder Che is a 59 y.o. male seen by his primary care physician for preoperative clearance for a right reversal total shoulder arthroplasty Past medical history of dyslipidemia and an abnormal EKG Update 05/27/2024: Doing well from a cardiac standpoint. Denies chest pain. No significant shortness of breath. No orthopnea, no paroxysmal: Dyspnea. Significant other states that he snores. No significant palpitations, lightheadedness, dizziness or syncope. No bleeding or oozing from the left radial vascular access site. Cardiology ROS: Review of Systems Musculoskeletal: Positive for arthritis and joint pain. All other systems reviewed and are negative. Past Medical History He has a past medical history of Abnormal ECG, Hyperlipidemia, and Hypertension. Surgical History He has a past surgical history that includes Foot surgery; Cholecystectomy; and Appendectomy. Social History He reports that he has quit smoking. His smoking use included cigarettes. He has never used smokeless tobacco. He reports current alcohol use. No history on file for drug use. Family History Family History Problem Relation Name Age of Onset Stroke Father Hypertension Father Allergies Penicillins Medications Current Outpatient Medications: aspirin 81 mg chewable tablet, Chew 1 tablet (81 mg) in the morning for 99 doses., Disp: 30 tablet, Rfl: 3 atorvastatin (Lipitor) 40 mg tablet, Take 1 tablet (40 mg) by mouth at bedtime for 99 doses., Disp: 30 tablet, Rfl: 3 ferrous sulfate 325 (65 Fe) MG EC tablet, Take 65 mg of iron by mouth with breakfast., Disp: , Rfl: gabapentin (Neurontin) 300 mg capsule, Take 300 mg by mouth 3 times a day., Disp: , Rfl: ibuprofen 800 mg tablet, Take 800 mg by mouth in the morning, afternoon, and at bedtime., Disp: , Rfl: irbesartan-hydrochlorothiazide (Avalide) 150-12.5 mg tablet, Take 1 tablet by mouth in the morning., Disp: , Rfl: omeprazole (PriLOSEC) [address] capsule, Take 40 mg by mouth before breakfast and before evening meal., Disp: , Rfl: potassium chloride CR (K-Tab) 20 mEq ER tablet, Take 20 mEq by mouth in the morning., Disp: , Rfl: simvastatin (Zocor) 40 mg tablet, Take 40 mg by mouth at bedtime., Disp: , Rfl: Last Recorded Vitals BP 125/75 (BP Location: Left arm, Patient Position: Sitting) Pulse 86 Ht 1.803 m (5' 11 ) Wt 114 kg (251 lb) SpO2 93% BMI 35.01 kg/m??? Physical Examination: GENERAL: alert and oriented x3, well developed, in no acute distress. HEAD: atraumatic, normocephalic. EYES: ENRIQUE, EOMI. NECK: trachea midline, no JVD present, no carotid bruits present. CARDIAC: S1, S2 present. RRR. Harsh ESM heard at the base, rubs, or gallops. RESPIRATORY: CTAB, no increased effort of breathing, no rales, rhonchi, or wheezing. ABDOMEN: soft, nontender, nondistended. EXTREMITIES: no lower extremity edema, peripheral pulses are 2+ bilaterally. No rash/skin discoloration present. NEURO: strength/sensation equal and symmetric in bilateral upper and lower extremities. PSYCH: appropriate mood, affect, and judgement. INVESTIGATIONS: EKG 07/23/2023: Sinus rhythm, probable left atrial enlargement Stress test 03/13/2024: No ECG evidence of ischemia Myocardial perfusion imaging reveals a moderate-sized intensity reversible anterolateral perfusion defect. This is consistent with ischemia. This is an intermediate risk study. Transient ischemic dilation ratio is 1.20 Stress ejection fraction is 67% 12 lead EK04/06/2024 Sinus tachycardia, 101 bpm, anterior infarct age-indeterminate, lateral ST depressions abnormal EKG Cardiovascular Laboratory Report FINAL IMPRESSIONS: Moderate focal disease of the mid to distal left anterior descending coronary artery Hyperdynamic global left ventricular systolic function by noninvasive imaging RECOMMENDATIONS: The patient is at acceptable ('low') risk to proceed with surgery with no further cardiovascular testing needed at this time; recommend strict heart rate and blood pressure control and avoidance of major fluid shifts Aggressive cardiovascular risk factor modification Optimal medical therapy for coronary artery disease should include aspirin, high intensity statin therapy, plus or minus a RAAS inhibitor Follow-up with Dr. Schaffer in the [place] office in 2 to 3 months Follow-up with his family physician as scheduled PROCEDURES: Ultrasound-guided access to the left radial artery, bilateral selective coronary angiography via a left radial approach METHODS: After risks, benefits, and alternatives were explained, written informed consent was obtained. The patient was prepped and draped in usual sterile fashion over the left wrist. Local infiltration anesthesia was achieved of the lef (more content not included)... [facility] 05-21-2024 History of Present illness Narrative Images from the original note were not included. @[email or web address]@ Harvinder Maximo Chinedu is a 59 y.o. male who presents for No chief complaint on file. HPI: History of Present Illness The patient is a 59-year-old right-hand dominant male here to discuss moving forward with surgery on his right shoulder. His pain continues to affect his activities of daily living, ability to sleep at night, and quality of life. He is scheduled for a CT scan today in preparation for his upcoming surgery on 06/10/2024. He has expressed a desire to return home on the same day as the surgery. He has no further questions at this time. SUBJECTIVE: MEDICATIONS: Current Outpatient Medications Medication Instructions aspirin 81 mg, Daily RT cetirizine (ZYRTEC) 10 mg, Daily gabapentin (NEURONTIN) 300 mg, Oral, 3 times daily ibuprofen 800 mg, Oral, 3 times daily irbesartan-hydroCHLOROthiazide (Avalide) 150-12.5 MG tablet 1 tablet, Oral, Daily omeprazole (PRILOSEC) 40 mg, Oral, Every 12 hours potassium chloride CR (K-Tab) 20 MEQ ER tablet 20 mEq, Oral, Daily, Do not crush, chew, or split. simvastatin (ZOCOR) 40 mg, Oral, Nightly ALLERGIES: Allergies Allergen Reactions Penicillins Rash SURGICAL HISTORY: Past Surgical History: Procedure Laterality Date APPENDECTOMY CHOLECYSTECTOMY 05/2008 COLONOSCOPY 12/2016 EGD 2010 and colonoscopy EGD 12/2016 FOOT SURGERY Right KNEE ARTHROSCOPY W/ MENISCECTOMY Right 12/04/2023 lateral, Dr Neville KNEE ARTHROSCOPY W/ MENISCECTOMY Right 08/07/2023 partial lateral meniscectomy, Dr Neville FAMILY HISTORY: Family History Problem Relation Name Age of Onset Hypertension Mother Diabetes Father 68 y/o Stroke Father Hypertension Father Bone cancer Brother SOCIAL HISTORY: Social History Tobacco Use Smoking status: Former Current packs/day: 0.00 Average packs/day: 0.3 packs/day for 2.0 years (0.5 ttl pk-yrs) Types: Cigarettes Start date: 07/15/1984 Quit date: 07/15/1986 Years since quittin.8 Smokeless tobacco: Never Substance Use Topics Alcohol use: Not Currently Drug use: Never Depression: Not on file REVIEW OF SYMPTOMS: Review of Systems The review of systems, history and current medications list are all reviewed today. OBJECTIVE: Visit Vitals Smoking Status Former Physical Exam Alert and oriented, no acute distress. Mood and affect are appropriate. Ambulating independently. Gait is nonantalgic. Atrophy noted in the supraspinatus and infraspinatus fossa of the right shoulder. Mildly positive Hornblower's sign observed. Decent strength demonstrated with belly press on the right. Internal rotation measured at T10 for the left shoulder and L4 for the right shoulder. Positive external rotation lag observed on both sides. Raises arms overhead. Mild weakness with forward flexion, negative drop arm. HEENT The skull is normocephalic. There is no sign of trauma to the head or neck. Hearing is intact for conversational tones. Eye exam reveals conjugate gaze adequate for walking and transfers. CARDIAC The heart is regular rate and rhythm. RESPIRATORY Chest excursion is symmetric and unlabored with lungs clear. ABDOMEN Soft and non-distended. OSTEOPATHIC AND STRUCTURAL EXAM There is no gross evidence of clinically significant kyphosis, or lordosis, or significant leg length discrepancy in a sitting and standing position. Ortho Exam Results MRI right shoulder 02/05/24 [facility] IC. Full thickness tears of the supraspinatus and infraspinatus with retraction of tendons medial to glenoid. Goutallier 4 infraspinatus, 3-4 supraspinatus. No atrophy to subscap. Long head of biceps tendon is torn. High riding humeral head. ASSESSMENT AND PLAN: I reviewed the history, physical exam, diagnostic studies, and diagnosis with the patient. Assessment & Plan 1. Cuff tear arthropathy, right shoulder. Post-surgery, he will be required to wear a sling, which can be removed during rest periods and for showering. A waterproof bandage will be applied to the surgical site. He is advised to remove the sling to facilitate movement of the elbow, hand, and wrist during the day. Home exercises will be initiated after the first postoperative visit. We will proceed with right reverse total shoulder arthroplasty. I explained the difference between anatomic shoulder arthroplasty and reverse shoulder arthroplasty and utilized the saw bones model and/or illustration during the discussion. I provided the patient information from the [facility] web site about this procedure. We will utilize the [employer] shoulder arthroplasty platform and obtain a CT scan of the shoulder to assist with preoperative planning and intraoperative instrumentation. The procedure will be performed as an outpatient procedure. We will utilize tranexamic acid preoperative and intraoperatively to help minimize blood loss. I reviewed the risk, benefits, complications, alternatives, and reasonable expectations. These risks include, but are not limited to, the risks of receiving an anesthetic, the risk of infection, the risk of neurovascular injury that could result in permanent disability, the risk of deep vein thrombosis that could result in potentially fatal pulmonary embolism. Any potential complication could require further surgical intervention. The patient acknowledges these risks and electively signed the consent form. At no time were any guarantees implied or stated. We will schedule the procedure at a mutually convenient time. Surgery will be performed under a general anesthetic as well as a regional anesthetic nerve block. I am requesting the nerve block to assist with intraoperative and postoperative pain control. A total of 30 to 39 minutes was spent on this patient encounter which included chart review, check in, nurse triage, history taking, physical examination, diagnostic study review, patient counseling and discussion, entering information into the patient's medical record, and coordinating patient care. There are no diagnoses linked to this encounter. Duane Goldberg D.O. Attestation This note was created using voice recognition through [employer]. documented in this encounter [facility] 2024 History of Present illness Narrative Images from the original note were not included. @[email or web address]@ Harvinder Che is a 59 y.o. male who presents for Pain of the Right Shoulder HPI: History of Present Illness The patient is a 59-year-old male who presents as a new patient today for evaluation of his right shoulder. He was previously under the care of Dr. Neville. He is right-handed and has been experiencing issues with his right shoulder for several years, which have recently worsened. The initial injury occurred in the when he forcefully threw a glass, resulting in a popping sensation in his shoulder. This incident led to a hospital visit due to his inability to lift objects at work. 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 He was scheduled for a shoulder replacement surgery with Dr. Neville, but surgery was apparently postponed due to the need for further cardiac workup. He underwent a stress test and heart catheterization, but no stent was required. He is not on any blood thinners. He has not received any injections in his shoulder recently. No history of surgery on the right shoulder. SUBJECTIVE: MEDICATIONS: Current Outpatient Medications Medication Instructions aspirin 81 mg, Daily RT cetirizine (ZYRTEC) 10 mg, Daily gabapentin (NEURONTIN) 300 mg, Oral, 3 times daily ibuprofen 800 mg, Oral, 3 times daily irbesartan-hydroCHLOROthiazide (Avalide) 150-12.5 MG tablet 1 tablet, Oral, Daily omeprazole (PRILOSEC) 40 mg, Oral, Every 12 hours potassium chloride CR (K-Tab) 20 MEQ ER tablet 20 mEq, Oral, Daily, Do not crush, chew, or split. simvastatin (ZOCOR) 40 mg, Oral, Nightly ALLERGIES: Allergies Allergen Reactions Penicillins Rash SURGICAL HISTORY: Past Surgical History: Procedure Laterality Date APPENDECTOMY CHOLECYSTECTOMY 05/2008 COLONOSCOPY 12/2016 EGD 2010 and colonoscopy EGD 12/2016 FOOT SURGERY Right KNEE ARTHROSCOPY W/ MENISCECTOMY Right 12/04/2023 lateral, Dr Neville KNEE ARTHROSCOPY W/ MENISCECTOMY Right 08/07/2023 partial lateral meniscectomy, Dr Neville FAMILY HISTORY: Family History Problem Relation Name Age of Onset Hypertension Mother Diabetes Father 68 y/o Stroke Father Hypertension Father Bone cancer Brother SOCIAL HISTORY: Social History Tobacco Use Smoking status: Former Current packs/day: 0.00 Average packs/day: 0.3 packs/day for 2.0 years (0.5 ttl pk-yrs) Types: Cigarettes Start date: 07/15/1984 Quit date: 07/15/1986 Years since quittin.8 Smokeless tobacco: Never Substance Use Topics Alcohol use: Not Currently Drug use: Never Depression: Not on file REVIEW OF SYMPTOMS: Review of Systems The review of systems, history and current medications list are all reviewed today. OBJECTIVE: Visit Vitals Temp 97.4 F Ht 5' 8 Wt 250 lb BMI 38.01 kg/m Smoking Status Former BSA 2.33 m Physical Exam Alert and oriented, no acute distress. Mood and affect are appropriate. Ambulating independently. Gait is nonantalgic. Atrophy noted in the supraspinatus and infraspinatus fossa of the right shoulder. Mildly positive Hornblower's sign observed. Decent strength demonstrated with belly press on the right. Internal rotation measured at T10 for the left shoulder and L4 for the right shoulder. Positive external rotation lag observed on both sides. Raises arms overhead. Mild weakness with forward flexion, negative drop arm. HEENT The skull is normocephalic. There is no sign of trauma to the head or neck. Hearing is intact for conversational tones. Eye exam reveals conjugate gaze adequate for walking and transfers. CARDIAC The heart is regular rate and rhythm. RESPIRATORY Chest excursion is symmetric and unlabored with lungs clear. ABDOMEN Soft and non-distended. OSTEOPATHIC AND STRUCTURAL EXAM There is no gross evidence of clinically significant kyphosis, or lordosis, or significant leg length discrepancy in a sitting and standing position. Ortho Exam Results 4 views right shoulder, Grashey/Zanca/outlet/axillary, taken today and saved to the permanent medical record are reviewed. Superior migration of humeral head. GH joint space fairly well preserved. Acetabularization changes of acromion. MRI right shoulder 02/05/24 [facility] IC. Full thickness tears of the supraspinatus and infraspinatus with retraction of tendons medial to glenoid. Goutallier 4 infraspinatus, 3-4 supraspinatus. No atrophy to subscap. Long head of biceps tendon is torn. High riding humeral head. ASSESSMENT AND PLAN: I reviewed the history, physical exam, diagnostic studies, and diagnosis with the patient. Assessment & Plan 1. Cuff tear arthropathy, right shoulder The patient has a long-standing history of right shoulder pain, which has significantly worsened over time. 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 A reverse shoulder replacement is recommended to improve pain and function. A CT scan of the right shoulder is ordered to provide a 3D mapping of the bone for surgical planning. The patient is advised that the surgery can be performed in early June, with the option to go home the same day or stay overnight based on his comfort level. Post-operative pain management will include a nerve block and prescribed pain medication. Miek Outpatient: I explained the difference between anatomic shoulder arthroplasty and reverse shoulder arthroplasty and utilized the saw bones model and/or illustration during the discussion. I provided the patient information from the [facility] web site about this procedure. We will utilize the [employer] shoulder arthroplasty platform and obtain a CT scan of the shoulder to assist with preoperative planning and intraoperative instrumentation. The procedure will be performed as an outpatient procedure. We will utilize tranexamic acid preoperative and intraoperatively to help minimize blood loss. I reviewed the risk, benefits, complications, alternatives, and reasonable expectations. These risks include, but are not limited to, the risks of receiving an anesthetic, the risk of infection, the risk of neurovascular injury that could result in permanent disability, the risk of deep vein thrombosis that could result in potentially fatal pulmonary embolism. Any potential complication could require further surgical intervention. The patient acknowledges these risks and electively signed the consent form. At no time were any guarantees implied or stated. We will schedule the procedure at a mutually convenient time. Surgery will be performed under a general anesthetic as well as a regional anesthetic nerve block. I am requesting the nerve block to assist with intraoperative and postoperative pain control. Previous blood work will be reviewed to determine if any additional tests are necessary. Preoperative risk assessment through his block and case maker has been completed. A total of 45-59 minutes was spent on this patient encounter which included chart review, check in, nurse triage, history taking, physical examination, diagnostic study review, patient counseling and discussion, entering information into the patient's medical record, and coordinating patient care. Diagnoses and all orders for this visit: Right shoulder pain, unspecified chronicity - XR shoulder 2+ views right Duane Goldberg D.O. Attestation This note was created using voice recognition through [employer]. documented in this encounter [facility] 04-09-2024 Telephone encounter Note Patient called in requesting a referral be sent somewhere closed for his sx. He stated he went to [place] today and it's just too far for him. Please advise [phone]. [facility] 04-09-2024 Miscellaneous Notes Patient called in requesting a referral be sent somewhere closed for his sx. He stated he went to [place] today and it's just too far for him. Please advise [phone]. documented in this encounter [facility] 04-08-2024 Note Cardiovascular Labor atory Report FINAL IMPRESSIONS: Moderate focal disease of the mid to distal left anterior descending coronary artery Hyperdynamic global left ventricular systolic function by noninvasive imaging RECOMMENDATIONS: The patient is at acceptable ('low') risk to proceed with surgery with no further cardiovascular testing needed at this time; recommend strict heart rate and blood pressure control and avoidance of major fluid shifts Aggressive cardiovascular risk factor modification Optimal medical therapy for coronary artery disease should include aspirin, high intensity statin therapy, plus or minus a RAAS inhibitor Follow-up with Dr. Schaffer in the [place] office in 2 to 3 months Follow-up with his family physician as scheduled PROCEDURES: Ultrasound-guided access to the left radial artery, bilateral selective coronary angiography via a left radial approach METHODS: After risks, benefits, and alternatives were explained, written informed consent was obtained. The patient was prepped and draped in usual sterile fashion over the left wrist. Local infiltration anesthesia was achieved of the left wrist. Using a micropuncture kit, access to the left radial artery was obtained. A 6 Pakistani glide sheath was inserted without difficulty. Bilateral selective coronary angiography was performed using JR 5 and JL 3.5 catheters. Difficulty engaging the left coronary artery was initially encountered; attempts to cannulate the ostium were performed using a JL 4, and AL 2 and an AL-1. The AL-1 inadvertently engaged the right coronary artery. Therefore, repeat right coronary angiography was performed at the completion of the case to ensure absence of catheter induced dissection or vessel injury. After reviewing the images, it was elected to conclude the procedure. The catheters were removed. The radial sheath was removed with application of a TR band per protocol to achieve optimal hemostasis. FINDINGS: Hemodynamics: AO 116/68 [84] LEFT VENTRICULOGRAPHY: This was not performed. Ejection fraction is 70% by echocardiography. CORONARY ARTERIES: Left main coronary artery: This arises from the left coronary cusp and bifurcates into the left anterior descending and left circumflex coronary arteries. It is free of significant stenoses. Left anterior descending coronary artery: This shows plaque at the ostium, there is a discrete 40 to 50% stenosis in the mid to distal portion of the vessel. It is a long wraparound vessel. Left circumflex coronary artery: This is a large codominant vessel giving rise to posterolateral branches. It is angiographically nonobstructive. Right coronary artery: This arises from the right coronary cusp, it is a codominant vessel giving rise to the posterior descending artery. There is tortuous with no significant stenosis. There is mild plaque. Repeat angiography shows no significant catheter dissection; there is catheter straightening in the proximal tortuous segment. INDICATIONS: Abnormal stress test, preoperative evaluation [facility] 04-06-2024 Note [facility] Note Chief Complaint: New patient here to establish care. Ref from Dr. Devries for abnormal ECG. Patient is also requesting cardiac clearance prior to shoulder surgery with Dr. Neville. Had stress test 03/13/2024 at [facility]. Patient denies chest pain, SOB, palpitations, and lightheadedness/syncope. HPI: Harvinder Che is a 58 y.o. male seen by his primary care physician for preoperative clearance for a right reversal total shoulder arthroplasty Past medical history of dyslipidemia and an abnormal EKG Cardiology ROS: Review of Systems Musculoskeletal: Positive for arthritis and joint pain. All other systems reviewed and are negative. Past Medical History He has no past medical history on file. Surgical History He has no past surgical history on file. Social History He has no history on file for tobacco use, alcohol use, and drug use. Family History No family history on file. Allergies Patient has no allergy information on record. Medications No current outpatient medications on file. Last Recorded Vitals BP 126/76 (BP Location: Right arm, Patient Position: Sitting) Pulse 103 Ht 1.803 m (5' 11 ) Wt 115 kg (254 lb) SpO2 96% BMI 35.43 kg/m??? Physical Examination: GENERAL: alert and oriented x3, well developed, in no acute distress. HEAD: atraumatic, normocephalic. EYES: ENRIQUE, EOMI. NECK: trachea midline, no JVD present, no carotid bruits present. CARDIAC: S1, S2 present. RRR. Harsh ESM heard at the base, rubs, or gallops. RESPIRATORY: CTAB, no increased effort of breathing, no rales, rhonchi, or wheezing. ABDOMEN: soft, nontender, nondistended. EXTREMITIES: no lower extremity edema, peripheral pulses are 2+ bilaterally. No rash/skin discoloration present. NEURO: strength/sensation equal and symmetric in bilateral upper and lower extremities. PSYCH: appropriate mood, affect, and judgement. INVESTIGATIONS: EKG 07/23/2023: Sinus rhythm, probable left atrial enlargement Stress test 03/13/2024: No ECG evidence of ischemia Myocardial perfusion imaging reveals a moderate-sized intensity reversible anterolateral perfusion defect. This is consistent with ischemia. This is an intermediate risk study. Transient ischemic dilation ratio is 1.20 Stress ejection fraction is 67% 12 lead EK04/06/2024 Sinus tachycardia, 101 bpm, anterior infarct age-indeterminate, lateral ST depressions abnormal EKG Assessment: Abnormal stress test Abnormal ECG possible anterior infarct, lateral ST depressions Ejection systolic murmur Dyslipidemia Preoperative evaluation R shoulder surgery Plan: Routine labs A complete echocardiogram - this should be obtained prior to cardiac catheterization. His murmur would suggest the presence of aortic stenosis, the presence and severity of which will influence therapeutic decision making should he be found to have coronary artery disease Given his abnormal EKG, abnormal stress test, and the need for preoperative risk assessment, I have recommended proceeding with invasive coronary angiography - Elective surgery should be deferred until his cardiovascular testing is complete - I emphasized the potential need to postpone surgery for at least 3 to 6 months should he require stent placement given the need for dual antiplatelet therapy Further recommendations pending the echocardiogram and cardiac catheterization Neil Schaffer MD, MPH, FACC, [facility], [facility] Interventional Cardiology Pager Email: [email or web address] 02-24-[address] Li reviews p t chart and wants medical clearance for a potassium level of 2.8. Luisa at Dr Nevilel was notified of this. [Electronically Signed on: 02/24/2024 13:34 EDT] Buddy Heller RN [Verified on: 02/24/2024 13:34 EDT] Buddy Heller RN [facility] 10-21-2023 Note XR KNEE RT 3 VWS Procedure: Right knee radiographs performed Number of views:3 History:Pain Comparison:None Findings: There is no fracture, dislocation, effusion, or destructive lesion. Impression: No acute findings. Finalized by Nasreen Ordoñez DO on 10/21/2023 1:01 PM [facility] 07-23-2023 Instructions Marivel Shepherd RN - 07/23/2023 12:45 PM EST Preoperative Education Checklist- General Surgery date: 08/07/23 Surgery time: 11a Arrival time: 9a 1. Bring a photo ID and your insurance card with you the day of surgery. You will check in at the main lobby of the [facility]- registration desk is straight ahead as soon as you walk in. Tell them you are here for surgery. 2. If you have a Living Will/Durable Power of Representative for Health Care that is not on file here, please bring a copy the day of surgery. 3. Please shower/bathe the night before surgery with the provided soap or wipes. Do not shower the morning of surgery- you will do use wipes when you arrive here at the hospital before getting into your surgical gown. Do not shave the area of your procedure for 2 days prior to your surgery. 4. NO powder, lotion, perfume/cologne, aftershave, make-up, deodorant, or hair products after you have bathed. 5. NO nail gambian/acrylic on at least one finger. If you are having a hand, wrist or foot surgery then all nail gambian and artificial/acrylic nails must be removed from that hand or foot. 6. Avoid ALL Aspirin and non-steroidal anti-inflammatory drugs and certain vitamins (Ibuprofen, Advil, Aleve, Excedrin, Meloxicam, Celebrex, fish/krill oil, etc.) for 7 days prior to surgery as instructed by your surgeon and/or your prescribing doctor. Tylenol IS ALLOWED. If you are on Ticlid, Xarelto, Eliquis, Pradaxa, Plavix or Coumadin, please check with your prescribing doctor for instructions for when to stop them. 7. If you use an inhaler, continue to use it routinely. 8. Nothing to eat or drink (not even water, gum, mints, or hard candy!) AFTER midnight prior to your surgery. 9. Take only medications that you are instructed to on the morning of surgery with a TINY SIP OF WATER. 10. Choose a responsible adult that will be able to drive you home when you are discharged from your hospital stay for your surgery and can stay with you in your home for 24 hours after your procedure. You must NOT drive any vehicle or operate any machinery for 24 hours after surgery. 11. When you dress for your appointment, please wear loose fitting clothing that is appropriate to accommodate your surgical area procedure. BRING WITH YOU ANY DEVICES YOU MAY NEED: PURNIMA hose, ice machine, sling/swath, brace or special shoe, oversized zip-up or button up shirt, CPAP machine if staying overnight. 12. Do NOT wear jewelry, watches, or any piercings or metal for surgery- leave these valuables and money at home. 13. Do NOT wear contact lenses for surgery- glasses are okay if needed. 14. The anesthesiologist will talk with you the day of surgery and will ask you to sign a Consent Form. 15. Refrain from smoking or any type of tobacco use for at least 8 hours and marijuana for 24 hours prior to arrival for your surgery. 16. If a GREEN BLOOD band is given to you, please bring it with you for the day of surgery. 17. Notify your surgeon if you develop any illness before your surgery. 18. If you are staying overnight, please DO NOT BRING your home medications with you. 19. If you have any questions prior to surgery, please call the [facility] office at [phone], Mon.-Fri. 7 a.m.-3 p.m. Leave a voicemail if needed. Pre-Surgery Instructions: Medication Instructions ibuprofen (MOTRIN) 800 mg tablet Stop taking 1 week prior to procedure gabapentin (NEURONTIN) 300 mg capsule Stop taking 0 days prior to procedure omeprazole (PriLOSEC) 40 mg capsule Take morning of procedure simvastatin (ZOCOR) 40 mg tablet Stop taking 0 days prior to procedure How to Avoid an Infection after Your Surgery Your doctor will give you specific instructions, but remember: -ALWAYS wash hands before caring for your incision. -No picking, scratching, or rubbing your incision. -No creams, lotion, powder, rubbing alcohol or hydrogen peroxide on the incision (can harm the tissue and slow healing). -Your doctor will give you specific instructions for what type of dressing you will need and how often it will need changed for infection purposes. -No tight clothing on incision. -Do not allow anyone to touch your incision unless they are cleaning, checking, or redressing it (be sure they wash their hands first). -No contact of your incision with pets; avoid sleeping with pets. -Take full course of antibiotic if prescribed for you after surgery- do not stop unless directed to by your physician. You may also be given an antibiotic prior to your surgery to help prevent surgical site infections. -Eat a healthy and varied diet including proteins, fruits, and vegetables to help promote wound healing and keep blood sugars under control if you are diabetic. -Smoking slows the healing process by decreasing the amount of oxygen in your blood that is needed for tissue healing. Try to avoid or stop smoking if possible. LOOK at your incision each morning and each night to check the progress of healing. Some soreness, numbness, itching and/or mild bruising around the incision is normal. Call your doctor if you notice any of the following: -Increased redness or hardening around the incision area. -Increased pain at the incision site. -Incision feels hot to the touch. -Swelling or pulling apart of the incision edges. -Yellow or green drainage or foul odor coming from the incision. -Bleeding from the incision (apply pressure as needed). -Fever higher than 101 degrees Fahrenheit for more than 4 hours. SHOWERING: Your doctor will give you specific instructions, but remember: -Be careful getting into and out of the shower. -Showers should be quick (5 minutes or less). -Use a clean washcloth to gently wash your incision with soap and water and pat the area dry with a clean towel. -No re-using wash cloths or towels; get a fresh one to clean your incision. -Do not soak in the bathtub, go swimming or use a hot tub (Jacuzzi), or perform activities where your incision is submerged in water or exposed to any fluids or substances until instructed by your doctor. -If your have the sticky strips (steri-strips) over the incision, it is OK to shower with them. Do not remove them. Let them fall off on their own. If you have a question, call your doctor s office. Go to the follow-up appointment with your doctor. documented in this encounter [facility] Evaluation + Plan note Future Appointments Appointment Date:06/10/2024 11:00:00 AM Scheduled Provider: Location:[facility] Appointment Type:Surgery FT [facility] Evaluation note Diagnosis Preop examination- Primary Unspecified pre-operative examination Preop examination Unspecified pre-operative examination [facility] Right [facility] pain, unspecified chronicity- Primary Rotator cuff tear arthropathy of right shoulder documented in this encounter [facility]* Diagnosis Rotator cuff tear arthropathy of right shoulder- Primary documented in this encounter [facility] Narrative No data available for this section [facility] Hospital Discharge instructions No data available for this section [facility] Progress note No data available for this section [facility] Summary Purpose Family History No Family History Records FoundNo Family History Records FoundNo Family History Records Found No data available for this section No Family History Records FoundNo Family History Records FoundNo Family History Records FoundNo Family History Records FoundNo Family History Records FoundNo Family History Records FoundNo Family History Records FoundNo Family History Records Found Advance Directives No Advanced Directives Records FoundNo Advanced Directives Records FoundNo Advanced Directives Records FoundNo Advanced Directives Records FoundNo Advanced Directives Records FoundNo Advanced Directives Records FoundNo Advanced Directives Records FoundNo Advanced Directives Records FoundNo Advanced Directives Records FoundNo Advanced Directives Records FoundNo Advanced Directives Records Found Reason for Referral Specialty Diagnoses / Procedures Referred By Contac t Referred To Contact Diagnoses Preop examination Procedures ECG 12 lead Paulina Olson MD [address] [place] [address] Referral ID Status Reason Start Date Expiration Date V isits Requested Visits Authorized [id number] Pending Review 07/23/2023 07/22/2024 1 1 Additional Source Comments (unrecognized sect ion and content) No Status Records FoundNo Status Records FoundNo Status Records FoundNo Status Records FoundNo Status Records FoundNo Status Records FoundNo Status Records FoundNo Status Records FoundNo Status Records FoundNo Status Records FoundNo Status Records Found INFORMATION SOURCE (unrecogn ized section and content) DATE CREATED AUTHOR 08/03/2020 [facility] DATE CREATED AUTHOR AUTHOR'S ORGANIZ ATION 03/30/2024 [facility] DATE CREATED AUTHOR AUTHOR'S ORGANIZ ATION 04/10/2024 [facility] DATE CREATED AUTHOR AUTHOR'S ORGANIZ ATION 05/23/2024 [facility] DATE CREATED AUTHOR AUTHOR'S ORGANIZ ATION 05/23/2024 [facility] DATE CREATED AUTHOR AUTHOR'S ORGANIZ ATION 05/26/2024 [facility] DATE CREATED AUTHOR AUTHOR'S ORGANIZ ATION 05/29/2024 [facility] Care Teams (unrecognized sec tion and content) 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 Relationship Specialty Start Date End Date Daniele Brown DO [facility] [place] [address] PCP - General 11/20/16 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 Relationship Specialty Start Date End Date Daniele Devries MD [address] [address] PCP - General Internal Medicine 11/26/22 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 Relationship Specialty Start Date End Date Daniele Devries MD [address] [facility] [address] [place] [address] PCP - General Internal Medicine 11/26/22 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 This clinical summary was aggregated from multiple sources. Caution should be exercised in using it in the provision of clinical care. This summary normalizes information from multiple sources, and as a consequence, information in this document may materially change the coding, format and clinical context of patient data. In addition, data may be omitted in some cases. CLINICAL DECISIONS SHOULD BE BASED ON THE PRIMARY CLINICAL RECORDS. [employer] [facility]. provides no warranty or guarantee of the accuracy or completeness of information in this document.
[2024-06-03 11:57] LABS: Alanine Aminotransferase 27 U/L (16-63); Albumin Globulin Ratio 0.9; Albumin Level 3.5 g/dL (3.4-5.0); Alkaline Phosphatase 101 U/L (46-116); Aspartate Amino Transferase 26 U/L (15-37); Bilirubin Direct 0.4 mg/dL (0.0-0.2); Bilirubin Total 1.9 mg/dL (0.2-1.0); Chol HDL Ratio 4.4; Cholesterol 146 mg/dL (<=200); Globulin 3.7 g/dL; HDL Cholesterol 33 mg/dL (40-60); Total Protein 7.2 g/dL (6.4-8.2); Triglycerides 105 mg/dL (<=150)
== END 2024-06-03 10:33 | disposition home or self-care (01) ==
LOC: LAB 10:37
PROVIDERS: PCP Internal Medicine; Visit Provider Internal Medicine Interventional Cardiology
DX: I25.10 Atherosclerotic heart disease of native coronary artery without angina pectoris (principal); E78.2 Mixed hyperlipidemia; I10 Essential (primary) hypertension
CPT/HCPCS: 36415; 80061; 80076